=== PATIENT | female | born 1995 | race Two or more races ===

== ENCOUNTER 2024-12-13 10:27 | Inpatient (IN) | payer MEDICAID, OTHER ==
[~2024-12-13] VITALS: Ht 167.6 cm; Wt 52.7 kg
--- NOTE | 2024-12-13 11:06 | ED.PDOC ---
History of Present Illness HPI Comments A 29 YEAR OLD FEMALE PRESENTS TO THE ED WITH COMPLAINT OF LEFT-SIDED PELVIC PAIN AND URINARY URGENCY. PATIENT STATES SHE HAS BEEN EXPERIENCING LEFT-SIDED PELVIC PAIN FOR THE PAST 1 WEEK. PATIENT REPORTS SHE HAS ALSO BEEN EXPERIENCING URINARY URGENCY AND FREQUENCY WITH MILDLY INCREASED THIRST FOR THE PAST 4 DAYS. PATIENT DENIES DYSURIA, HEMATURIA, FLANK PAIN, FEVER, CHILLS, SHORTNESS OF BREATH, CHEST PAIN, ABDOMINAL PAIN, NAUSEA, VOMITING, HEADACHE, OR OTHER COMPLAINTS. NO OTHER SYMPTOMS OR MODIFYING FACTORS AT THIS TIME. PATIENT IS ALERT, ORIENTED X 4, AND HAS STEADY GAIT. Chief Complaint: Pelvic Pain Time Seen by MD: 10:28 Reviewed Notes: Nurses Notes, Medications, Allergies Allergies: Coded Allergies: NO KNOWN ALLERGIES (Unverified , 12/13/24) Information Source: Patient Mode of Arrival: Ambulatory Severity: Moderate Timing: Days Duration: Since onset, Days Prehospital treatment: None Medication Refill: For: Other (LEFT-SIDED PELVIC PAIN AND URINARY URGENCY) Past Medical History PAST MEDICAL HISTORY: Denies Surgical History: Denies all surgeries CLEANING LABORER History: No Pertinent CLEANING LABORER History Family History Family History: Reviewed,noncontributory to illness Social History Smoker: Non-Smoker Alcohol: Denies ETOH Use Drugs: Denies Drug Use Lives In: Home Constitutional: denies: chills, diaphoresis, fatigue, fever, malaise, sweats, weakness, others EENTM: denies: blurred vision, double vision, ear bleeding, ear discharge, ear drainage, ear pain, ear ringing, eye pain, eye redness, hearing loss, mouth pain, mouth swelling, nasal discharge, nose bleeding, nose congestion, nose brianna n, photophobia, tearing, throat pain, throat swelling, voice changes, others Respiratory: denies: cough, hemoptysis, orthopnea, SOB at rest, shortness of breath, SOB with excertion, stridor, wheezing, others Cardiovascular: denies: chest pain, dizzy spells, diaphoresis, Dyspnea on exertion, edema, irregular heart beat, left arm pain, lightheadedness, palpitations, PND, syncope, others Gastrointestinal: denies: abdomen distended, abdominal pain, blood streaked bowels, constipated, diarrhea, dysphagia, difficulty swallowing, hematemesis, melena, nausea, poor appetite, poor fluid intake, rectal bleeding, rectal pain, vomiting, others Genitourinary: reports: frequency, pain (LEFT-SIDED PELVIC PAIN), urgency; denies: abnormal vagina bleeding, burning, dyspareunia, dysuria, flank pain, hematuria, incontinence, , vagina discharge, others Neurological: denies: dizziness, fainting, headache, left sided numbness, left sided weakness, numbness, paresthesia, pre-existing deficit, right sided numbness, right sided weakness, seizure, speech problems, tingling, tremors, weakness, others Musculoskeletal: denies: back pain, gout, joint pain, joint swelling, muscle pain, muscle stiffness, neck pain, others Integumetry: denies: bruises, change in color, change in hair/nails, dryness, laceration, lesions, lumps, rash, wounds, others Allergic/Immunocompromised: denies: Difficulty Healing, Frequent Infections, Hives, Itching, others Hematologic/Lymphatic: denies: anemia, blood clots, easy bleeding, easy bruising, swollen glands, others Endocrine: denies: excessive hunger, excessive sweating, excessive thirst, excessive urination, flushing, intolerance to cold, intolerance to heat, unexplained weight gain, unexplained weight loss, others Psychiatric: denies: anxiety, bipolar disorder, depression, hopeless, panic disorder, schizophrenia, sleepless, suicidal, others All Other Systems: Reviewed and Negative Physical Exam General Appearance: No Apparent Distress, Obese HEENT: Normal ENT Inspection, PERRL/EOMI, Pharynx Normal, TMs Normal Neck: Full Range of Motion, Non-Tender, Normal, Normal Inspection Respiratory: Chest Non-Tender, Lungs Clear, No Accessory Muscle Use, No Respiratory Distress, Normal Breath Sounds Cardiovascular: No Edema, No JVD, No Murmur, No Gallop, Normal Peripheral Pulses, Regular Rate/Rhythm Breast Exam: Deferred Gastrointestinal: LLQ, No Organomegaly, No Pulsatile Mass, Normal Bowel Sounds, Soft, Tenderness (LEFT LOWER ABD WITH GUARDING, NO REBOUND TENDERNESS. ) Genitalia: Deferred Pelvic: Normal External Exam, Tender Adnexa (TENDERNE ON LEFT PELVIC, NO GUARDING AND REBOUND TENDERNESS. ), Tender Uterus Rectal: Deferred Extremities: No calf tenderness, Normal capillary refill, Normal inspection, Normal range of motion, Non-tender, No pedal edema Musculoskeletal : Apperance: Normal Neurologic: Alert, vault custodian II-XII nml as Tested, No Motor Deficits, Normal Affect, Normal Mood, No Sensory Deficits Cerebellar Function: Normal Reflexes: Normal Skin: Dry, Normal Color, Warm Peripheral Pulses: 2+ carotid (R), 2+ carotid (L) Lymphatic: No Adenopathy Was a procedure done? Was a procedure done?: No Differential Dx Considerations may include: UTI, ACUTE CYSTITIS, UTERINE FIBROIDS, OVARIAN CYST, DIABETES, ELECTROLYTE IMBALANCE, DEHYDRATION, UTI SYMPTOMS X-Ray, Labs, Meds, VS Vital Signs Date Time Temp Pulse Resp B/P (MAP) Pulse Ox O2 Delivery O2 Flow Rate FiO2 12/13/24 10:28 98.8 96 18 132/84 99 98.8 Lab Test 12/13/24 11:09 12/13/24 10:57 Range/Units White Blood Count 22.7 H 4.4-10.8 10^3/uL Red Blood Count 4.86 4.0-5.20 10^6/uL Hemoglobin 13.2 12.2-16.2 g/dL Hematocrit 39.5 36.0-46.0 % Mean Corpuscular Volume 81.2 80.0-100.0 fL Mean Corpuscular Hemoglobin 27.1 L 28.0-32.0 pg Mean Corpuscular Hemoglobin Concent 33.4 32.0-36.0 g/dL Red Cell Distribution Width 14.7 H 11.8-14.3 % Platelet Count 542 H 140-450 10^3/uL Mean Platelet Volume 8.1 6.9-10.8 fL Neutrophils (%) (Auto) 83.3 H 37.0-80.0 % Lymphocytes (%) (Auto) 6.1 L 10.0-50.0 % Monocytes (%) (Auto) 9.4 0.0-12.0 % Eosinophils (%) (Auto) 0.7 0.0-7.0 % Basophils (%) (Auto) 0.5 0.0-2.0 % Neutrophils # (Auto) 18.9 H 1.6-8.6 10 ^3/uL Lymphocytes # (Auto) 1.4 0.4-5.4 10 ^3/uL Monocytes # (Auto) 2.1 H 0-1.3 10 ^3/uL Eosinophils # (Auto) 0.2 0-0.8 10 ^3/uL Basophils # (Auto) 0.1 0-0.2 10 ^3/uL Nucleated Red Blood Cells 0.0 % Prothrombin Time 12.4 H 9.3-11.8 sec Prothrombin Time INR 1.19 H 0.9-1.15 Activated Partial Thromboplast Time 37.0 H 24.5-34.5 SEC Sodium Level 136 136-145 mmol/L Potassium Level 4.2 3.5-5.1 mmol/L Chloride Level 102 98-107 mmol/L Carbon Dioxide Level 22 20-31 mmol/L Anion Gap 12 5-15 Blood Urea Nitrogen 8 L 9-23 mg/dL Creatinine 0.93 0.550-1.02 mg/dL Glomerular Filtration Rate Calc 85 >90 mL/min BUN/Creatinine Ratio 8.6 L 10.0-20.0 Serum Glucose 98 74-106 mg/dL Calcium Level 8.7 8.7-10.4 mg/dL Urine Color Karnes H Yellow Urine Clarity Turbid H Clear Urine pH 6.0 5.0-9.0 Urine Specific Lavinia 1.032 1.001-1.035 Urine Protein 1+ H Negative Urine Ketones 1+ H Negative Urine Blood 1+ H Negative /uL Urine Nitrite Negative Negative Urine Bilirubin 1+ H Negative Urine Urobilinogen 8 H Negative mg/dL Urine Leukocyte Esterase 3+ Negative /uL Urine RBC 14 0 - 4 /hpf Urine Microscopic WBC 65 H 0-5 /HPF Urine Squamous Epithelial Cells Mod <5 /hpf Urine Bacteria None seen None Seen /hpf Urine Mucus Few None Seen Urine Yeast (Budding) Occasional None Seen /hpf Urine Glucose Normal Normal mg/dL Urine Test Negative Negative INDICATION: LEFT SIDE PELVIC PAIN TECHNIQUE: Multiple real-time grayscale transabdominal and transvaginal sonographic images along with color and duplex Doppler of the uterus and ovaries were obtained. COMPARISON: None FINDINGS: The uterus measures 6.41 x 4.53 x 3.54 cm. The endometrial stripe measures 0.36 mm. Fluid in the cul-de-sac and bilateral adnexa The right ovary measures 4.37 x 2.82 by 3.14 cm. Volume of the right ovary is 20.23 cc. Multiple anechoic structures in the right ovary consistent with follicles The left ovary measures 3.73 by 2.57 by 2.87 cm. Volume of the left ovary is 14.41 cc. Subsequent color and duplex Doppler interrogation of the ovaries demonstrated symmetric vascular flow to both ovaries, though this does not exclude the possibility of torsion due to the dual blood supply. IMPRESSION: 1. Grossly unremarkable pelvic ultrasound. 2. Fluid in the cul-de-sac and bilateral adnexa. 3. Multiple follicles right ovary. ATED BY: RYAN MANNING Jr., DO DICTATED DATE/TIME: 12/13/24 1234 SIGNED BY: RYAN MANNING Jr., SIGNED DATE/TIME: 12/13/24 1234 CC: EXAM: CT CT AB PEL WO CON-NO ORAL OR IV HISTORY: LEFT LOWER ABD PAIN COMPARISON: None TECHNIQUE: Helical CT images of the abdomen and pelvis were performed without IV contrast. Sagittal and coronal reformatted images were obtained. This CT exam was performed using one or more of the following dose reduction techniques: Automated exposure control, adjustment of the mA and/or kv according to patient size, or the use of iterative reconstruction techniques. Radiation Dose: Abdomen/Pelvis: CTDIvol 25.2 mGy, DLP 1395.39 mGy*cm. FINDINGS: CT abdomen: There is atelectasis or scarring in the right middle lobe. The heart is not enlarged. The liver is diffusely fatty density and measures 22 cm longitudinal. The spleen measures 12 cm longitudinal. The noncontrast gallbladder, pancreas, kidneys, and adrenal glands are unremarkable. No abdominal aortic aneurysm. There are multiple mildly prominent lymph nodes in the central mesenteric fat and periaortic retroperitoneum. There is a small fatty umbilical hernia. CT pelvis: No abnormal bowel dilatation or free air. There is low volume free fluid in the pelvis with density greater than water. There is edema of the mid to lower abdominal and pelvic mesenteric fat anteriorly with question of a solid mass versus irregular fluid abutting the urinary bladder dome, loops of small bowel, and sigmoid colon. There are descending and sigmoid colon diverticula The appendix does not appear dilated or inflamed. Urinary bladder wall is thickened, although the urinary bladder is not distended. There is mild lumbar degenerative disc disease. IMPRESSION: 1. Hepatomegaly and hepatic steatosis. 2. Fluid density mass-like area in the lower abdominal mesenteric fat abuts the urinary bladder dome, loops of small bowel, and sigmoid colon. This likely represents inflammatory phlegmon versus developing diverticular abscess, less likely neoplasm. Recommend surgical consultation if not already obtained. 3. Low volume free fluid in the pelvis with increased density suggestive of blood products. 4. No evidence of bowel obstruction, acute appendicitis, or other acute process in the abdomen or pelvis. ATED BY: CARMEN VELEZ MD DICTATED DATE/TIME: 12/13/241414 SIGNED BY: CARMEN VELEZ MD SIGNED DATE/TIME: 12/13/241414 CC: X-Ray, Labs, Meds, VS Comment EXTERNAL MEDICAL RECORDS REVIEWED: [NONE] INDEPENDENT HISTORIANS: [NONE] SOCIAL DETERMINANTS OF HEALTH: [NONE] LABS ORDERED: CBC, BMP, UA, URINE REVIEWED AND INTERPRETED RESULTS: WBC 22.7, LEUKOCYTES 3+ IMAGING ORDERED: US PELVIS, CT ABD/PEL TREATMENTS ORDERED: NS 1 L IV, ZOFRAN 4 MG IV, FLAGYL 500 MG IV, LEVAQUIN 500 MG IV, TORADOL 30 MG IV PROCEDURES PERFORMED: NONE CRITICAL CARE TIME: NONE I HAVE DISCUSSED THE PATIENT WITH THE ATTENDING PHYSICIAN DR. CROCKETT AND HE AGREES WITH THE PATIENT'S PLAN OF CARE. UPON MY PHYSICAL EXAMINATION, THE PATIENT HAD GUARDING, BUT NO REBOUND TENDERNESS NOTED UPON PALPATION TO HER LOWER ABDOMEN. A CT SCAN OF THE PATIENT'S ABDOMEN AND PELVIS WAS DONE WHICH REVEALED DIVERTICULITIS WITH A POSSI BLE DEVELOPING DIVERTICULAR ABSCESS. DUE TO THE PATIENT'S CT SCAN RESULTS, I HAVE DETERMINED THE PATIENT SHOULD BE ADMITTED FOR FURTHER TREATMENT AND EVALUATION. THE ON-CALL HOSPITALIST AND GENERAL SURGEON WILL BE CONTACTED FOR ADMISSION AND CONSULT. Images Reviewed?: Images reviewed and evaluated by me Time of 1ST Reevaluation: 15:00 Reevaluation 1ST: Unchanged Patient Education/Counseling: Diagnosis, Treatment Family Education/Counseling: Diagnosis, Treatment SEPSIS Sepsis Screen Date sepsis recognized/suspect: Dec 13, 2024 Time Sepsis recognized/suspect: 1030 Recent Procedure: No On Antibiotic Therapy: No Respiratory Rate >20: No Heart Rate >90: Yes Temp<36 C (96.8 F) or >38.3 C: No SBP <90 or MAP <65 mmHG: No New Acute Mental Status Change: No Is the patient on CPAP, BIPAP,: No Physician Orders Pelvic (12/13/24 11:02) Ct Ab Pel Wo Con-No Oral Or Iv (12/13/24 13:29) Heplock Iv (12/13/24 ) Vital Signs Date Time Temp Pulse Resp B/P (MAP) Pulse Ox O2 Delivery O2 Flow Rate FiO2 12/13/24 10:28 98.8 96 18 132/84 99 98.8 Laboratory Tests Test 12/13/24 11:09 White Blood Count 22.7 10^3/uL (4.4-10.8) H Departure 1 Departure Time of Disposition: 15:00 Impression: Primary Impression: Acute diverticulitis Additional Impression: Acute UTI (urinary tract infection) Disposition: ADMITTED INPATIENT Condition: Serious Critical Care Note Critical Care Time?: No Stability Stability form required: Yes Unstable for transfer: Requires medication, ED Physician Assesment, Possible rapid decline I personally scribed for LUIS FERNANDO VALLE ([email or web address]) on 12/13/24 at 11:06. Electronically submitted by Wesly Medley ([employer]). I personally scribed for LUIS FERNANDO VALLE ([email or web address]) on 12/13/24 at 14:38. Electronically submitted by Wesly Medley ([employer]). I personally scribed for LUIS FERNANDO VALLE ([email or web address]) on 12/13/24 at 15:12. Electronically submitted by Wesly Medley ([email or web address]). LUIS FERNANDO VALLE Dec 13, 2024 11:06
[2024-12-13 11:21] LABS: Hematocrit 39.5 % (36.0-46.0); Hemoglobin 13.2 g/dL (12.2-16.2); Mean Corpuscular Hemoglobin 27.1 pg (28.0-32.0); Mean Corpuscular Volume 81.2 fL (80.0-100.0); Nucleated Red Blood Cells % 0.0 %
[2024-12-13 11:30] LABS: Chloride 102 mmol/L (98-107); Potassium 4.2 mmol/L (3.5-5.1)
[2024-12-13 11:31] LABS: Anion Gap 12 (5-15); Carbon Dioxide 22 mmol/L (20-31)
[2024-12-13 11:36] LABS: BUN/Creatinine Ratio 8.6 (10.0-20.0); Glucose 98 mg/dL (74-106)
[2024-12-13 11:37] LABS: Blood Urea Nitrogen 8 mg/dL (9-23); Calcium 8.7 mg/dL (8.7-10.4); Sodium 136 mmol/L (136-145)
--- NOTE | 2024-12-13 12:37 | DVH ---
INDICATION: LEFT SIDE PELVIC PAIN TECHNIQUE: Multiple real-time grayscale transabdominal and transvaginal sonographic images along with color and duplex Doppler of the uterus and ovaries were obtained. COMPARISON: None FINDINGS: The uterus measures 6.41 x 4.53 x 3.54 cm. The endometrial stripe measures 0.36 mm. Fluid i n the cul-de-sac and bilateral adnexa The right ovary measures 4.37 x 2.82 by 3.14 cm. Volume of the right ovary is 20.23 cc. Multiple anec hoic structures in the right ovary consistent with follicles The left ovary measures 3.73 by 2.57 by 2.87 cm. Volume of the left ovary is 14.41 cc. Subsequent color and duplex Doppler interrogation of the ovaries demonstrated symmetric vascular flow to both ovaries, though this does not exclude the possibility of torsion due to the dual blood suppl y. IMPRESSION: 1. Grossly unremarkable pelvic ultrasound. 2. Fluid in the cul-de-sac and bilateral adnexa. 3. Multiple follicles right ovary.
[2024-12-13 12:53] LABS: Urine Budding Yeast OCCASIONAL /hpf (None Seen); Urine Protein, UAD 1+ (Negative)
--- NOTE | 2024-12-13 14:17 | DVH ---
EXAM: CT CT AB PEL WO CON-NO ORAL OR IV HISTORY: LEFT LOWER ABD PAIN COMPARISON: None TECHNIQUE: Helical CT images of the abdomen and pelvis were performed without IV contrast. Sagittal a nd coronal reformatted images were obtained. This CT exam was performed using one or more of the foll owing dose reduction techniques: Automated exposure control, adjustment of the mA and/or kv according to patient size, or the use of iterative reconstruction techniques. Radiation Dose: Abdomen/Pelvis: CTDIvol 25.2 mGy, DLP 1395.39 mGy*cm. FINDINGS: CT abdomen: There is atelectasis or scarring in the right middle lobe. The heart is not enlarged. The liver is diffusely fatty density and measures 22 cm longitudinal. The spleen measures 12 cm longitu dinal. The noncontrast gallbladder, pancreas, kidneys, and adrenal glands are unremarkable. No abdomi nal aortic aneurysm. There are multiple mildly prominent lymph nodes in the central mesenteric fat an d periaortic retroperitoneum. There is a small fatty umbilical hernia. CT pelvis: No abnormal bowel dilatation or free air. There is low volume free fluid in the pelvis wit h density greater than water. There is edema of the mid to lower abdominal and pelvic mesenteric fat anteriorly with question of a solid mass versus irregular fluid abutting the urinary bladder dome, lo ops of small bowel, and sigmoid colon. There are descending and sigmoid colon diverticula The appendi x does not appear dilated or inflamed. Urinary bladder wall is thickened, although the urinary bladde r is not distended. There is mild lumbar degenerative disc disease. IMPRESSION: 1. Hepatomegaly and hepatic steatosis. 2. Fluid density mass-like area in the lower abdominal mesenteric fat abuts the urinary bladder dome, loops of small bowel, and sigmoid colon. This likely represents inflammatory phlegmon versus develop ing diverticular abscess, less likely neoplasm. Recommend surgical consultation if not already obtain ed. 3. Low volume free fluid in the pelvis with increased density suggestive of blood products. 4. No evidence of bowel obstruction, acute appendicitis, or other acute process in the abdomen or pel vis.
[2024-12-13] MEDS ORDERED: VANCOMYCIN PER PHARMACY 0 MG IV SCH (15:00)
[2024-12-13] MEDS ORDERED: MORPHINE SULFATE 4 MG/ML SYR/VIAL IV PRN (15:00)
[2024-12-13] MEDS ORDERED: MORPHINE SULFATE INJ 2 MG/ml SYRG IV PRN (15:00)
[2024-12-13] MEDS: SODIUM CHLORIDE 0.9% 1,000 ML IV ONE ×2 (15:00→18:00)
[2024-12-13 15:21] LABS: INR 1.19 (0.9-1.15); Partial Thromboplastin Time 37.0 SEC (24.5-34.5); Prothrombin Time 12.4 sec (9.3-11.8)
[2024-12-13] MEDS: VANCOMYCIN 1GM/250ML KIT 250 ML IV SCH (16:30)
--- NOTE | 2024-12-13 17:44 | DVHHP2 ---
History of Present Illness Reason for Visit: Abdominal pain History of Present Illness 29-year-old presents for evaluation of abdominal pain. Patient reports a one- week history of lower abdominal/pelvic pain with associated nausea, vomiting and chills. She states that over the past four days symptoms have become worse. Denies dysuria or hematuria. Past Medical History Denies Past Surgical History Denies Family History Noncontributory Smoke: No ALCOHOL: none Drugs: None Lives: with Family Review of Systems Review of Systems Review of systems are currently negative otherwise addressed in HPI. Allergies: Coded Allergies: NO KNOWN ALLERGIES (Unverified , 12/13/24) Medications Current Medications Medications Dose Ordered Sig/Naye Route Start Time Stop Time Status Last Admin Dose Admin Vancomycin HCl 0 ml @ 0 mls/hr UD IV 12/13/24 15:00 Piperacillin Sod/ Tazobactam Sod 100 ml @ 25 mls/hr Q8HR IV 12/13/24 22:00 Pantoprazole Sodium 40 mg DAILY IV 12/14/24 10:00 Ondansetron HCl 4 mg Q4HP PRN IV 12/13/24 15:00 Morphine Sulfate 2 mg Q4HPRN PRN IV 12/13/24 15:00 UNV Morphine Sulfate 2 mg Q4HPRN PRN IV 12/13/24 15:00 Vancomycin HCl 250 ml @ 250 mls/hr Q1H IV 12/13/24 16:30 12/13/24 18:29 Exam Vital Signs Vital Signs Date Time Temp Pulse Resp B/P (MAP) Pulse Ox O2 Delivery O2 Flow Rate FiO2 12/13/24 10:28 98.8 96 18 132/84 99 98.8 Exam Gen: 29-year-old female in mild distress. Skin: Warm, dry, normal color and texture, no rash. HEENT: Normocephalic atraumatic, mucous membranes moist and pink. Neck: Cervical and supraclavicular nodes normal without enlargement, trachea is midline, thyroid gland is normal without masses. Pulmonary: Clear to auscultation and percussion bilaterally. Cardiac: Regular rate and rhythm. No murmur Abdomen: Soft, lower abdominal tenderness, nondistended, bowel sounds present all 4 quadrants, no guarding, no rigidity, no organomegaly. Extremities: No cyanosis, clubbing, no edema Neuro: Cranial nerves II through XII grossly intact, normal affect and speech, no focal motor deficits. Labs/Xrays ORDERING PHYSICIAN: LUIS FERNANDO VALLE PROCEDURE(s): PELUS - PELVIC REASON: LEFT SIDE PELVIC PAIN ORDER NUMBER(s): [id number], ACCESSION NUMBER(s): [id number] INDICATION: LEFT SIDE PELVIC PAIN TECHNIQUE: Multiple real-time grayscale transabdominal and transvaginal sonographic images along with color and duplex Doppler of the uterus and ovaries were obtained. COMPARISON: None FINDINGS: The uterus measures 6.41 x 4.53 x 3.54 cm. The endometrial stripe measures 0.36 mm. Fluid in the cul-de-sac and bilateral adnexa The right ovary measures 4.37 x 2.82 by 3.14 cm. Volume of the right ovary is 20.23 cc. Multiple anechoic structures in the right ovary consistent with follicles The left ovary measures 3.73 by 2.57 by 2.87 cm. Volume of the left ovary is 14.41 cc. Subsequent color and duplex Doppler interrogation of the ovaries demonstrated symmetric vascular flow to both ovaries, though this does not exclude the possibility of torsion due to the dual blood supply. IMPRESSION: 1. Grossly unremarkable pelvic ultrasound. 2. Fluid in the cul-de-sac and bilateral adnexa. 3. Multiple follicles right ovary. RING PHYSICIAN: LUIS FERNANDO VALLE PROCEDURE(s): ABPL - CT AB PEL WO CON-NO ORAL OR IV REASON: LEFT LOWER ABD PAIN ORDER NUMBER(s): [id number], ACCESSION NUMBER(s): [id number] EXAM: CT CT AB PEL WO CON-NO ORAL OR IV HISTORY: LEFT LOWER ABD PAIN COMPARISON: None TECHNIQUE: Helical CT images of the abdomen and pelvis were performed without IV contrast. Sagittal and coronal reformatted images were obtained. This CT exam was performed using one or more of the following dose reduction techniques: Automated exposure control, adjustment of the mA and/or kv according to patient size, or the use of iterative reconstruction techniques. Radiation Dose: Abdomen/Pelvis: CTDIvol 25.2 mGy, DLP 1395.39 mGy*cm. FINDINGS: CT abdomen: There is atelectasis or scarring in the right middle lobe. The heart is not enlarged. The liver is diffusely fatty density and measures 22 cm longitudinal. The spleen measures 12 cm longitudinal. The noncontrast gallbladder, pancreas, kidneys, and adrenal glands are unremarkable. No abdominal aortic aneurysm. There are multiple mildly prominent lymph nodes in the central mesenteric fat and periaortic retroperitoneum. There is a small fatty umbilical hernia. CT pelvis: No abnormal bowel dilatation or free air. There is low volume free fluid in the pelvis with density greater than water. There is edema of the mid to lower abdominal and pelvic mesenteric fat anteriorly with question of a solid mass versus irregular fluid abutting the urinary bladder dome, loops of small bowel, and sigmoid colon. There are descending and sigmoid colon diverticula The appendix does not appear dilated or inflamed. Urinary bladder wall is thickened, although the urinary bladder is not distended. There is mild lumbar degenerative disc disease. IMPRESSION: 1. Hepatomegaly and hepatic steatosis. 2. Fluid density mass-like area in the lower abdominal mesenteric fat abuts the urinary bladder dome, loops of small bowel, and sigmoid colon. This likely represents inflammatory phlegmon versus developing diverticular abscess, less likely neoplasm. Recommend surgical consultation if not already obtained. 3. Low volume free fluid in the pelvis with increased density suggestive of blood products. 4. No evidence of bowel obstruction, acute appendicitis, or other acute process in the abdomen or pelvis. Labs Test 12/13/24 11:09 12/13/24 10:57 Range/Units White Blood Count 22.7 H 4.4-10.8 10^3/uL Red Blood Count 4.86 4.0-5.20 10^6/uL Hemoglobin 13.2 12.2-16.2 g/dL Hematocrit 39.5 36.0-46.0 % Mean Corpuscular Volume 81.2 80.0-100.0 fL Mean Corpuscular Hemoglobin 27.1 L 28.0-32.0 pg Mean Corpuscular Hemoglobin Concent 33.4 32.0-36.0 g/dL Red Cell Distribution Width 14.7 H 11.8-14.3 % Platelet Count 542 H 140-450 10^3/uL Mean Platelet Volume 8.1 6.9-10.8 fL Neutrophils (%) (Auto) 83.3 H 37.0-80.0 % Lymphocytes (%) (Auto) 6.1 L 10.0-50.0 % Monocytes (%) (Auto) 9.4 0.0-12.0 % Eosinophils (%) (Auto) 0.7 0.0-7.0 % Basophils (%) (Auto) 0.5 0.0-2.0 % Neutrophils # (Auto) 18.9 H 1.6-8.6 10 ^3/uL Lymphocytes # (Auto) 1.4 0.4-5.4 10 ^3/uL Monocytes # (Auto) 2.1 H 0-1.3 10 ^3/uL Eosinophils # (Auto) 0.2 0-0.8 10 ^3/uL Basophils # (Auto) 0.1 0-0.2 10 ^3/uL Nucleated Red Blood Cells 0.0 % Prothrombin Time 12.4 H 9.3-11.8 sec Prothrombin Time INR 1.19 H 0.9-1.15 Activated Partial Thromboplast Time 37.0 H 24.5-34.5 SEC Sodium Level 136 136-145 mmol/L Potassium Level 4.2 3.5-5.1 mmol/L Chloride Level 102 98-107 mmol/L Carbon Dioxide Level 22 20-31 mmol/L Anion Gap 12 5-15 Blood Urea Nitrogen 8 L 9-23 mg/dL Creatinine 0.93 0.550-1.02 mg/dL Glomerular Filtration Rate Calc 85 >90 mL/min BUN/Creatinine Ratio 8.6 L 10.0-20.0 Serum Glucose 98 74-106 mg/dL Calcium Level 8.7 8.7-10.4 mg/dL Urine Color [place] H Yellow Urine Clarity Turbid H Clear Urine pH 6.0 5.0-9.0 Urine Specific [place] 1.032 1.001-1.035 Urine Protein 1+ H Negative Urine Ketones 1+ H Negative Urine Blood 1+ H Negative /uL Urine Nitrite Negative Negative Urine Bilirubin 1+ H Negative Urine Urobilinogen 8 H Negative mg/dL Urine Leukocyte Esterase 3+ Negative /uL Urine RBC 14 0 - 4 /hpf Urine Microscopic WBC 65 H 0-5 /HPF Urine Squamous Epithelial Cells Mod <5 /hpf Urine Bacteria None seen None Seen /hpf Urine Mucus Few None Seen Urine Yeast (Budding) Occasional None Seen /hpf Urine Glucose Normal Normal mg/dL Urine Test Negative Negative SEPSIS Sepsis Screen Date sepsis recognized/suspect: Dec 13, 2024 Time Sepsis recognized/suspect: 1030 Recent Procedure: No On Antibiotic Therapy: No Respiratory Rate >20: No Heart Rate >90: Yes Temp<36 C (96.8 F) or >38.3 C: No SBP <90 or MAP <65 mmHG: No New Acute Mental Status Change: No Is the patient on CPAP, BIPAP,: No Physician Orders Pelvic (12/13/24 11:02) Ct Ab Pel Wo Con-No Oral Or Iv (12/13/24 13:29) Heplock Iv (12/13/24 ) Admit (12/13/24 14:49) * Surgical Consult (12/13/24 ) * Radiologist Consult (12/13/24 14:51) Vancomycin Per Pharmacy (12/13/24 15:00) Piperacillin-Tazob 3.375gm (Zosyn 3.375g (12/13/24 22:00) Pantoprazole (Protonix) (12/14/24 10:00) Basic Metabolic Panel (12/14/24 04:00) Ondansetron Hcl (Zofran) (12/13/24 15:00) Complete Blood Count (12/14/24 04:00) Npo (Nothing By Mouth) Diet (12/13/24 Dinner) Condition: Stable (12/13/24 14:54) Bedrest With Bathroom Privileg (12/13/24 14:54) Sodium Chloride 0.9% (12/13/24 15:00) Morphine Sulfate Injection (12/13/24 15:00) Vancomycin 1gm/250ml Kit (12/13/24 16:30) Vital Signs Date Time Temp Pulse Resp B/P (MAP) Pulse Ox O2 Delivery O2 Flow Rate FiO2 12/13/24 10:28 98.8 96 18 132/84 99 98.8 Laboratory Tests Test 12/13/24 11:09 White Blood Count 22.7 10^3/uL (4.4-10.8) H Assessment/Plan Assessment/Plan Assessment Questionable diverticular abscess Leukocytosis Admit the patient to [facility] surge to the hospitalist Surgical consultation Radiology consult Zosyn/vancomycin NPO Pain management Continue treatment per orders Plan discussed with: Patient My Orders Orders - PALLAVI PINTO Procedure Category Date Status Time Admit ADMIT 12/13/24 Transmitted 14:49 * Radiologist Consult CONS 12/13/24 Transmitted 14:51 Vancomycin Per PHA 12/13/24 In Process Pharmacy 15:00 Piperacillin-Tazob PHA 12/13/24 In Process 3.375gm (Zosyn 3.375g 22:00 Pantoprazole PHA 12/14/24 In Process (Protonix) 10:00 Basic Metabolic Panel LAB 12/14/24 Verified 04:00 Ondansetron Hcl PHA 12/13/24 In Process (Zofran) 15:00 Complete Blood Count LAB 12/14/24 Verified 04:00 Npo (Nothing By DIET 12/13/24 Transmitted Mouth) Diet Dinner Condition: Stable VIOLET 12/13/24 In Process 14:54 Bedrest With Bathroom VIOLET 12/13/24 In Process Privileg 14:54 Sodium Chloride 0.9% PHA 12/13/24 In Process 15:00 Morphine Sulfate PHA 12/13/24 In Process Injection 15:00 Vancomycin 1gm/250ml PHA 12/13/24 In Process Kit 16:30 Date of Service: Dec 13, 2024 Billing Provider: PALLAVI PINTO Common Visit Codes: [id number] INP/OBS CARE (MOD) PALLAVI PINTO Dec 13, 2024 17:44
[2024-12-13 18:16] VITALS: PULSE 80; RESP 18; O2SAT 96
[2024-12-13] MEDS: KETOROLAC TROMETH 30 MG/ML 1ML VIAL IV ONE ×3 (18:56→21:02)
--- NOTE | 2024-12-13 19:36 | DVHINCON2 ---
Consultation - Surgical Date Seen: Dec 13, 2024 Referring Physician Reason for Consultation Diverticulitis History of Present Illness History of Present Illness is a 29-year-old female who presented to the ED due to intractable lower abdominal pain, the pain has been present for the last week. The pain has intensified over the last 2-3 days and this is why she decided to come to the ED. It is associated with nausea and occasional vomiting. States that since the pain started she has not been able to go regularly to the bathroom, she has had to push allowed to have a bowel movement. She regularly has 2-3 bowel movements per day. Has not noted any blood in the stool. Denies any changes between constipation and diarrhea and there is no family history of IBD/IBS. She is lactose intolerant. Denies fevers, chills, changes in urinary habits. Denies any past history of diverticulosis or strong family history of diverticulosis. Past Medical/Surgical History Past Medical/Surgical History PMH lactose intolerant, asthma PSH denies Family and Social History Family and Social History No family history of IBD/IBS Allergies and medications Allergies: Coded Allergies: NO KNOWN ALLERGIES (Unverified , 12/13/24) Review of systems Review of Systems: Deferred Examination Vital signs Vital Signs Date Time Temp Pulse Resp B/P (MAP) Pulse Ox O2 Delivery O2 Flow Rate FiO2 12/13/24 10:28 98.8 96 18 132/84 99 98.8 Medications Current Medications Medications (Trade) Dose Ordered Sig/Naye Route PRN Reason Start Time Stop Time Status Last Admin Vancomycin HCl 0 ml @ 0 mls/hr UD IV 12/13/24 15:00 Piperacillin Sod/ Tazobactam Sod 100 ml @ 25 mls/hr Q8HR IV 12/13/24 22:00 Pantoprazole Sodium (Protonix) 40 mg DAILY IV 12/14/24 10:00 Ondansetron HCl (Zofran) 4 mg Q4HP PRN IV NAUSEA / VOMITING 12/13/24 15:00 Morphine Sulfate 2 mg Q4HPRN PRN IV SEVERE PAIN (7-10 PAIN SCALE) 12/13/24 15:00 UNV Morphine Sulfate 2 mg Q4HPRN PRN IV SEVERE PAIN (7-10 PAIN SCALE) 12/13/24 15:00 Vancomycin HCl 250 ml @ 250 mls/hr Q1H IV 12/13/24 16:30 12/13/24 18:29 DC Laboratory Labs Test 12/13/24 18:00 12/13/24 11:09 12/13/24 10:57 Range/Units Lactic Acid Level 0.7 0.4-2.0 mmol/L White Blood Count 22.7 H 4.4-10.8 10^3/uL Red Blood Count 4.86 4.0-5.20 10^6/uL Hemoglobin 13.2 12.2-16.2 g/dL Hematocrit 39.5 36.0-46.0 % Mean Corpuscular Volume 81.2 80.0-100.0 fL Mean Corpuscular Hemoglobin 27.1 L 28.0-32.0 pg Mean Corpuscular Hemoglobin Concent 33.4 32.0-36.0 g/dL Red Cell Distribution Width 14.7 H 11.8-14.3 % Platelet Count 542 H 140-450 10^3/uL Mean Platelet Volume 8.1 6.9-10.8 fL Neutrophils (%) (Auto) 83.3 H 37.0-80.0 % Lymphocytes (%) (Auto) 6.1 L 10.0-50.0 % Monocytes (%) (Auto) 9.4 0.0-12.0 % Eosinophils (%) (Auto) 0.7 0.0-7.0 % Basophils (%) (Auto) 0.5 0.0-2.0 % Neutrophils # (Auto) 18.9 H 1.6-8.6 10 ^3/uL Lymphocytes # (Auto) 1.4 0.4-5.4 10 ^3/uL Monocytes # (Auto) 2.1 H 0-1.3 10 ^3/uL Eosinophils # (Auto) 0.2 0-0.8 10 ^3/uL Basophils # (Auto) 0.1 0-0.2 10 ^3/uL Nucleated Red Blood Cells 0.0 % Prothrombin Time 12.4 H 9.3-11.8 sec Prothrombin Time INR 1.19 H 0.9-1.15 Activated Partial Thromboplast Time 37.0 H 24.5-34.5 SEC Sodium Level 136 136-145 mmol/L Potassium Level 4.2 3.5-5.1 mmol/L Chloride Level 102 98-107 mmol/L Carbon Dioxide Level 22 20-31 mmol/L Anion Gap 12 5-15 Blood Urea Nitrogen 8 L 9-23 mg/dL Creatinine 0.93 0.550-1.02 mg/dL Glomerular Filtration Rate Calc 85 >90 mL/min BUN/Creatinine Ratio 8.6 L 10.0-20.0 Serum Glucose 98 74-106 mg/dL Calcium Level 8.7 8.7-10.4 mg/dL Urine Color [place] H Yellow Urine Clarity Turbid H Clear Urine pH 6.0 5.0-9.0 Urine Specific [place] 1.032 1.001-1.035 Urine Protein 1+ H Negative Urine Ketones 1+ H Negative Urine Blood 1+ H Negative /uL Urine Nitrite Negative Negative Urine Bilirubin 1+ H Negative Urine Urobilinogen 8 H Negative mg/dL Urine Leukocyte Esterase 3+ Negative /uL Urine RBC 14 0 - 4 /hpf Urine Microscopic WBC 65 H 0-5 /HPF Urine Squamous Epithelial Cells Mod <5 /hpf Urine Bacteria None seen None Seen /hpf Urine Mucus Few None Seen Urine Yeast (Budding) Occasional None Seen /hpf Urine Glucose Normal Normal mg/dL Urine Test Negative Negative Examination: GENERAL:Normal, HEENT:Normal (No icterus), ABDOMEN:Abnormal (Nondistended, soft, depressible, no scars, no hernias, no masses, suprapubic tenderness, no rebound, no guarding) Problem List/Assessment/Plan Problems: (1) Acute diverticulitis Assessment and Plan is a 29-year-old female who presents with the acute diverticulitis, [place] [address] was reviewed and shows sigmoid colon diverticuli with surrounding inflammation and phlegmon formation. No free air noted on CT. Patient also presented with leukocytosis of 23. Patient will benefit from bowel rest and IV antibiotics. 1. NPO, ice chips for comfort(minimal) 2. Continue with IV antibiotics 3. Pain control 4. Nausea control 5. IV fluid hydration 6. Out of bed and ambulate Plan discussed with Plan discussed with: Patient Visit Coding Surgery Date of Service if different f: Dec 13, 2024 Billing Provider: SLOANE MAN MD Surgery Visit Codes: [id number] - INP CONSULT <110 MIN SLOANE MAN MD Dec 13, 2024 19:36
[2024-12-13] MEDS ORDERED: PIPERACILLIN-TAZOB 3.375GM 100 ML IV SCH (22:00)
[2024-12-13] MEDS: VANCOMYCIN 1GM/250ML KIT 500 ML IV ONE (23:23)
[2024-12-14] VITALS (8 sets, daily range): BP systolic 116–150; BP diastolic 62–83; PULSE 81–104; RESP 18–20; TEMP 98.2–101; O2SAT 93–98
[2024-12-14] MEDS: VANCOMYCIN 1GM/250ML KIT 0 ML IV ONE (00:58)
[2024-12-14] MEDS: PIPERACILLIN-TAZOB 3.375GM 100 ML IV SCH (03:03)
[2024-12-14] MEDS: ONDANSETRON HCL 4 MG/2 ML VIAL IV PRN (03:05)
[2024-12-14] MEDS: PANTOPRAZOLE 40 MG/10 ML VIAL INJ IV SCH (10:43)
[2024-12-14] MEDS: HYDROmorphone HCL 2 MG/ML VL/or syr IV PRN (12:18)
--- NOTE | 2024-12-14 15:14 | DVHPN2 ---
Progress Note - Surgical Date Seen: Dec 14, 2024 Post op day Post op day: 0 Subjective Patient reports: No new complaints (Still having suprapubic pain, pain medicines are helping, had a painful bowel movement today) Review of Systems: Deferred Objective Vital signs Vital Sign Date Time Temp Pulse Resp B/P (MAP) Pulse Ox O2 Delivery O2 Flow Rate FiO2 12/14/24 13:00 101.0 94 18 116/62 (80) 96 101.0 12/14/24 08:15 Room Air* 0 21 Total Intake and Output 12/13/24 12/13/24 12/14/24 15:00 23:00 07:00 Intake Total 350 ml Balance 350 ml Medications Current Medications Medications Dose Ordered Sig/Naye Route Start Time Stop Time Status Last Admin Dose Admin Vancomycin HCl 0 ml @ 0 mls/hr UD IV 12/13/24 15:00 Pantoprazole Sodium 40 mg DAILY IV 12/14/24 10:00 12/14/24 10:43 40 MG Ondansetron HCl 4 mg Q4HP PRN IV 12/13/24 15:00 12/14/24 03:05 4 MG Morphine Sulfate 2 mg Q4HPRN PRN IV 12/13/24 15:00 UNV Morphine Sulfate 2 mg Q4HPRN PRN IV 12/13/24 15:00 Piperacillin Sod/ Tazobactam Sod 100 ml @ 25 mls/hr Q8H IV 12/14/24 02:45 12/14/24 10:39 25 MLS/HR Hydromorphone HCl 1 mg Q4HPRN PRN IV 12/14/24 12:00 12/14/24 12:18 1 MG Vancomycin HCl 250 ml @ 200 mls/hr Q12H IV 12/14/24 14:00 Laboratory Laboratory Tests 12/14/24 10:30 12/13/24 11:09 Test 12/13/24 11:09 Range/Units Serum Glucose 98 74-106 mg/dL Examination: GENERAL:Normal, ABDOMEN:Abnormal (Mild distention, soft, depressible, suprapubic tenderness, no rebound, no guarding) Labs and/or images reviewed: Labs reviewed by me (CBC still pending) Problem List/Assessment/Plan Problems: (1) Acute diverticulitis Assessment and Plan is a 29-year-old female who presents with the acute diverticulitis, [place] [address] was reviewed and shows sigmoid colon diverticuli with surrounding inflammation and phlegmon formation. No free air noted on CT. Patient also presented with leukocytosis of 23. Patient will benefit from bowel rest and IV antibiotics. Interval: Still having some suprapubic tenderness, had a painful bowel movement today. We will continue with medical management. We will leave the patient NPO for today and reassess tomorrow. 1. NPO, ice chips for comfort(minimal) 2. Continue with IV antibiotics 3. Pain control 4. Nausea control 5. IV fluid hydration 6. Out of bed and ambulate 7. Colace b.i.d. (stool softener) 8. No GI laxatives or cathartics Plan discussed with Plan discussed with: Patient Visit Coding Surgery Date of Service if different f: Dec 14, 2024 Billing Provider: SLOANE MAN MD Surgery Visit Codes: [id number] INP/OBS CARE(HIGH) SLOANE MAN MD Dec 14, 2024 15:14
[2024-12-14] MEDS: VANCOMYCIN 1.25GM/250ML 250 ML IV SCH (15:46)
[2024-12-14] MEDS: DOCUSATE SOD 100 MG CAP PO SCH (22:00)
--- NOTE | 2024-12-14 22:16 | DVHPN2 ---
Subjective The patient is seen and examined at bedside. Complain of severe abdominal pain. The patient can not tolerate morphine. Reviewed: Care Plan, H&P, Labs, Medications, Previous Orders, Radiology Changes from previous H/P or p: No Changes Objective Vitals Vital Signs Date Time Temp Pulse Resp B/P (MAP) Pulse Ox O2 Delivery O2 Flow Rate FiO2 12/14/24 21:00 100.3 104 19 117/75 (89) 93 100.3 12/14/24 20:00 Room Air* 0 21 Intake/Output Intake and Output 12/14/24 07:00 Intake Total 350 ml Balance 350 ml Intake Oral 0 ml IV Total 350 ml General Appearance: Alert, Cooperative, moderate distress HEENT: Atraumatic, PERRLA, EOMI, Mucous membr. moist/pink Neck: Supple Lungs: Clear to auscultation, Normal air movement Cardiovascular: Regular rate, Normal S1, Normal S2, No murmurs, Gallops, Rubs Abdomen: Normal bowel sounds, Soft, No tenderness Neuro: Cranial nerves 3-12 NL Psych/Mental Status: Mental status NL Medications Current Medications Medications Dose Ordered Sig/Naye Route Start Time Stop Time Status Last Admin Dose Admin Vancomycin HCl 0 ml @ 0 mls/hr UD IV 12/13/24 15:00 Pantoprazole Sodium 40 mg DAILY IV 12/14/24 10:00 12/14/24 10:43 40 MG Ondansetron HCl 4 mg Q4HP PRN IV 12/13/24 15:00 12/14/24 03:05 4 MG Morphine Sulfate 2 mg Q4HPRN PRN IV 12/13/24 15:00 UNV Morphine Sulfate 2 mg Q4HPRN PRN IV 12/13/24 15:00 Piperacillin Sod/ Tazobactam Sod 100 ml @ 25 mls/hr Q8H IV 12/14/24 02:45 12/14/24 18:14 25 MLS/HR Hydromorphone HCl 1 mg Q4HPRN PRN IV 12/14/24 12:00 12/14/24 18:14 1 MG Vancomycin HCl 250 ml @ 200 mls/hr Q12H IV 12/14/24 14:00 12/14/24 15:46 200 MLS/HR Docusate Sodium 100 mg BID PO 12/14/24 22:00 Laboratory Results Laboratory Tests 12/13/24 11:09 12/14/24 10:30 Urinalysis Test 12/13/24 10:57 Urine Color [place] (Yellow) H Urine Clarity Turbid (Clear) H Urine pH 6.0 (5.0-9.0) Urine Specific [place] 1.032 (1.001-1.035) Urine Protein 1+ (Negative) H Urine Ketones 1+ (Negative) H Urine Blood 1+ /uL (Negative) H Urine Nitrite Negative (Negative) Urine Bilirubin 1+ (Negative) H Urine Urobilinogen 8 mg/dL (Negative) H Urine Leukocyte Esterase 3+ /uL (Negative) Urine RBC 14 /hpf (0 - 4) Urine Microscopic WBC 65 /HPF (0-5) H Urine Squamous Epithelial Cells Mod /hpf (<5) Urine Bacteria None seen /hpf (None Seen) Urine Mucus Few (None Seen) Urine Yeast (Budding) Occasional /hpf (None Urine Glucose Normal mg/dL (Normal) Urine Test Negative (Negative) Labs and/or images reviewed: Labs reviewed by me Assessment/Plan Assessment/Plan Acute diverticulitis Questionable diverticular abscess Leukocytosis Continuing current management. Surgical consultation appreciate Radiology consult Continuing with IV antibiotic Zosyn/vancomycin We will let her bowel rest and continuing the patient on NPO Pain management : I will discontinuing morphine and start the patient on Dilaudid 1 mg IV q.4 PRN for pain Continuing with IV fluid Plan discussed with: Patient My Orders Orders - LOAN MCCONNELL MD Procedure Category Date Status Time Hydromorphone PHA 12/14/24 In Process Injection (Dilaudid 12:00 Date of Service: Dec 14, 2024 Billing Provider: LOAN MCCONNELL MD Common Visit Codes: [id number] INP/OBS CARE(HIGH) LOAN MCCONNELL MD Dec 14, 2024 22:16
[2024-12-15] VITALS (8 sets, daily range): BP systolic 113–153; BP diastolic 69–93; PULSE 92–115; RESP 18–20; TEMP 98.5–100.3; O2SAT 90–97
[2024-12-15 09:46] LABS: Mean Corpuscular Volume 82.8 fL (80.0-100.0)
[2024-12-15 09:48] LABS: Hematocrit 36.4 % (36.0-46.0); Hemoglobin 11.9 g/dL (12.2-16.2); Mean Corpuscular Hemoglobin 27.0 pg (28.0-32.0)
[2024-12-15 09:58] LABS: Albumin 3.6 g/dL (3.2-4.8); Alkaline Phosphatase 91 U/L (46-116); Anion Gap 11 (5-15); BUN/Creatinine Ratio 7.4 (10.0-20.0); Carbon Dioxide 22 mmol/L (20-31); Chloride 101 mmol/L (98-107); Potassium 3.9 mmol/L (3.5-5.1); Total Protein 7.0 g/dL (5.7-8.2)
[2024-12-15 10:05] LABS: Alanine Aminotransferase 9 U/L (7-40); Blood Urea Nitrogen 7 mg/dL (9-23); Calcium 8.5 mg/dL (8.7-10.4); Glucose 118 mg/dL (74-106); Sodium 134 mmol/L (136-145)
[2024-12-15 10:06] LABS: Bilirubin, Total 1.8 mg/dL (0.2-1.0)
[2024-12-15 10:27] LABS: Total Cells Counted 100.0 (100)
--- NOTE | 2024-12-15 11:01 | DVHPN2 ---
Progress Note - Surgical Date Seen: Dec 15, 2024 Post op day Post op day: 0 Subjective Patient reports: Feels better (Patient feels better, less abdominal pain, no more bowel movements, although she had several febrile episodes overnight.) Review of Systems: Deferred Objective Vital signs Vital Sign Date Time Temp Pulse Resp B/P (MAP) Pulse Ox O2 Delivery O2 Flow Rate FiO2 12/15/24 10:43 106 16 128/77 12/15/24 08:42 99.5 90 99.5 12/14/24 20:00 Room Air* 0 21 Total Intake and Output 12/14/24 12/14/24 12/15/24 15:00 23:00 07:00 Intake Total 450 ml 350 ml Output Total 100 ml Balance 350 ml 350 ml Medications Current Medications Medications Dose Ordered Sig/Naye Route Start Time Stop Time Status Last Admin Dose Admin Vancomycin HCl 0 ml @ 0 mls/hr UD IV 12/13/24 15:00 Pantoprazole Sodium 40 mg DAILY IV 12/14/24 10:00 12/15/24 10:22 40 MG Ondansetron HCl 4 mg Q4HP PRN IV 12/13/24 15:00 12/14/24 03:05 4 MG Morphine Sulfate 2 mg Q4HPRN PRN IV 12/13/24 15:00 UNV Morphine Sulfate 2 mg Q4HPRN PRN IV 12/13/24 15:00 Piperacillin Sod/ Tazobactam Sod 100 ml @ 25 mls/hr Q8H IV 12/14/24 02:45 12/15/24 10:23 25 MLS/HR Hydromorphone HCl 1 mg Q4HPRN PRN IV 12/14/24 12:00 12/15/24 10:43 1 MG Vancomycin HCl 250 ml @ 200 mls/hr Q12H IV 12/14/24 14:00 12/15/24 01:14 200 MLS/HR Docusate Sodium 100 mg BID PO 12/14/24 22:00 12/15/24 10:23 100 MG Laboratory Laboratory Tests 12/15/24 06:16 Test 12/15/24 06:16 Range/Units Serum Glucose 118 H 74-106 mg/dL Examination: GENERAL:Normal, ABDOMEN:Abnormal (Nondistended, soft, depressible, suprapubic tenderness (much improved), no rebound, no guarding) Labs and/or images reviewed: Labs reviewed by me (Leukocytosis now at 31 from 23) Problem List/Assessment/Plan Assessment and Plan is a 29-year-old female who presents with the acute diverticulitis, [place] [address] was reviewed and shows sigmoid colon diverticuli with surrounding inflammation and phlegmon formation. No free air noted on CT. Patient also presented with leukocytosis of 23. Patient will benefit from bowel rest and IV antibiotics. Interval: Patient states he is feeling much better but she had some fever episodes overnight and yesterday, leukocytosis now is 31 from 23 and she was tachycardic to the 110s. Patient is likely forming an abscess given that she is not peritonitic and she is feeling better from her abdominal pain. I recommend rescanning the patient with a CT abdomen and pelvis with IV contrast in 4-[address], unless the patient's condition significantly worsens. 1. NPO, ice chips for comfort(minimal) 2. Continue with IV antibiotics 3. Pain control 4. Nausea control 5. IV fluid hydration 6. Out of bed and ambulate 7. Colace b.i.d. (stool softener) 8. No GI laxatives or cathartics 9. CT abdomen and pelvis with IV contrast in 4-[address] to evaluate for abscess formation, sooner if patient's condition worsens My Orders My Orders Orders - SLOANE MAN MD Procedure Category Date Status Time Docusate Sodium PHA 12/14/24 In Process Capsule (Colace 22:00 Plan discussed with Plan discussed with: Patient Visit Coding Surgery Date of Service if different f: Dec 15, 2024 Billing Provider: SLOANE MAN MD Surgery Visit Codes: [id number] INP/OBS CARE(HIGH) SLOANE MAN MD Dec 15, 2024 11:01
--- NOTE | 2024-12-15 12:04 | DVH ---
CLINICAL INFORMATION: Possible abscess. TECHNIQUE: Axial CT images of the abdomen and pelvis were obtained without IV contrast. Coronal and s agittal reformatted images were obtained, reviewed, and stored. Evaluation of the parenchymal organs is limited without IV contrast. Evaluation of the bowel and mesentery is limited without oral contras t. All CT scans at this medical facility are performed using dose modulation techniques as appropriat e to a performed exam including the following: Automated exposure control was utilized; adjustment of the MA and/or KV according to patient size; and use of iterative reconstruction technique. CTDIvol = 27.23 mGy DLP = 1402.27 mGy-cm COMPARISON: CT CT AB PEL WO CON-NO ORAL OR IV on DOS: 12/13/24, US PELVIC on DOS: 12/13/24, US TRANSVAG INAL US NON OB on DOS: 12/13/24 FINDINGS: Lung bases: Mild atelectasis in the lung bases. Liver: Hepatic steatosis. Biliary: Increased density in the gallbladder, possibly sludge. Spleen: Unremarkable. Pancreas: Grossly unremarkable in its noncontrast enhanced appearance. Adrenal glands: Unremarkable. No mass. Kidneys: No hydronephrosis. No renal or ureteral calculi. Aorta/Vascular: No aneurysm or significant calcification. Lymph nodes: Mildly prominent retroperitoneal lymph nodes, similar to the prior exam, including at th e para-aortic and interaortocaval stations, likely reactive. Bowel/mesentery: Nonspecific nondilated fluid-filled small bowel loops. Prominent stranding in the lo wer abdominal mesentery and in the pelvis with ill-defined fluid adjacent to loops of small bowel as well as adjacent to the uterus and adnexa. Appendix is normal in diameter. The appendix extends jodi cent to the area of inflammatory stranding, however the stranding is not centered around the appendix to suggest acute appendicitis. Pelvic organs: Inflammatory stranding in the lower abdomen and pelvis extends adjacent to the uterus and adnexa. Bladder: Inflammatory stranding in the lower abdomen and pelvis extends adjacent to the bladder dome. Mild circumferential thickening of the bladder wall. Cystitis not excluded. Abdominal wall: No mass or hernia. Bones: No acute fracture or suspicious intraosseous lesion. IMPRESSION: 1. Prominent inflammatory stranding in the lower abdomen and pelvis with ill-defined fluid, likely in fectious or inflammatory in nature, extending adjacent to the small bowel loops, uterus, adnexa, and bladder. Differential considerations could include inflammatory bowel disease, pelvic inflammatory di sease, or other infectious or inflammatory etiology. Correlate with clinical findings. 2. Limited evaluation for abscess on noncontrast enhanced CT. Abscess not excluded. 3. Nonspecific nondilated fluid-filled small bowel loops with inflammatory stranding adjacent to annamarie l loops in the lower abdomen and pelvis. Findings may be due to enteritis in the appropriate clinical setting. 4. Appendix is normal in diameter. The appendix extends adjacent to the inflammatory changes in the lower abdomen and pelvis, although the inflammatory changes are not centered around the appendix to s uggest acute appendicitis. 5. Mild circumferential thickening of the bladder wall. Correlate clinically to exclude cystitis. 6. Additional findings as detailed above.
[2024-12-15] MEDS ORDERED: ALBUAER3 IN (15:18)
--- NOTE | 2024-12-15 21:52 | DVHINCON2 ---
Date of service: Dec 15, 2024 Referring Physician Ashley Rogel Reason for Consultation Suspected diverticulitis rule out enterocolitis History of Present Illness 29-year-old presents for evaluation of abdominal pain. Patient reports a one- week history of lower abdominal/pelvic pain with associated nausea, vomiting and chills. She states that over the past four days symptoms have become worse. Denies dysuria or hematuria. CT scan were suggestive of sigmoid diverticulitis with phlegmon and involvement of adjacent small bowel loops with inflammatory stranding Patient has been kept NPO on IV fluid hydration and IV antibiotics. Patient is clinically improving. Repeat CT of the abdomen was ordered today which shows persistent inflammatory changes involving small-bowel and lower pelvic area which appears to be related to the previous area of suspected sigmoid phlegmon Past Medical History Asthma Lactose intolerance Marijuana use Past Surgical History Negative Family History: Diabetes mellitus G8 FATHER FH: lupus G8 MOTHER Gout G8 FATHER Allergies: Coded Allergies: NO KNOWN ALLERGIES (Unverified , 12/13/24) Home Meds Reported Medications Albuterol Sulfate (VENTOLIN MDI) 90 Mcg Ih, 90 MCG IN, INH 12/15/24 Current Medications Current Medications Medications (Trade) Dose Ordered Sig/Naye Route PRN Reason Start Time Stop Time Status Last Admin Docusate Sodium (Colace Capsule) 100 mg BID PO 12/14/24 22:00 12/15/24 10:23 Vital Signs Vital Signs Date Time Temp Pulse Resp B/P (MAP) Pulse Ox O2 Delivery O2 Flow Rate FiO2 12/15/24 20:52 93 16 126/89 12/15/24 17:04 99.7 94 99.7 12/15/24 08:00 Room Air* 0 21 Physical Exam Hemodynamically stable with lower abdominal tenderness Full physical examination deferred Continued intermittent episodes of low-grade fevers Labs/Diagnostic Data Labs Test 12/15/24 06:16 12/14/24 10:30 12/13/24 18:00 12/13/24 11:09 Range/Units White Blood Count 31.1 #*H 4.4-10.8 10^3/uL Red Blood Count 4.40 4.0-5.20 10^6/uL Hemoglobin 11.9 L 12.2-16.2 g/dL Hematocrit 36.4 36.0-46.0 % Mean Corpuscular Volume 82.8 80.0-100.0 fL Mean Corpuscular Hemoglobin 27.0 L 28.0-32.0 pg Mean Corpuscular Hemoglobin Concent 32.6 32.0-36.0 g/dL Red Cell Distribution Width 14.8 H 11.8-14.3 % Platelet Count 526 H 140-450 10^3/uL Mean Platelet Volume 8.1 6.9-10.8 fL Neutrophils (%) (Auto) 37.0-80.0 % Lymphocytes (%) (Auto) 10.0-50.0 % Monocytes (%) (Auto) 0.0-12.0 % Basophils (%) (Auto) 0.0-2.0 % Neutrophils # (Auto) 1.6-8.6 10 ^3/uL Lymphocytes # (Auto) 0.4-5.4 10 ^3/uL Monocytes # (Auto) 0-1.3 10 ^3/uL Differential Total Cells Counted 100.0 100 Neutrophils % (Manual) 78 37.0-80.0 Band Neutrophils % (Manual) 1 Lymphocytes % (Manual) 9 L 10.0-50.0 Monocytes % (Manual) 12 0-12 Eosinophils % (Manual) 0 0-7 Basophils % (Manual) 0 0.0-2.0 Metamyelocytes % (manual) 0 Myelocytes % (Manual) 0 Promyelocytes % (Manual) 0 Blast Cells % (Manual) 0 Reactive Lymphocytes 0 Platelet Estimate Increased Sodium Level 134 L 136-145 mmol/L Potassium Level 3.9 3.5-5.1 mmol/L Chloride Level 101 98-107 mmol/L Carbon Dioxide Level 22 20-31 mmol/L Anion Gap 11 5-15 Blood Urea Nitrogen 7 L 9-23 mg/dL Creatinine 0.94 0.550-1.02 mg/dL Glomerular Filtration Rate Calc 84 >90 mL/min BUN/Creatinine Ratio 7.4 L 10.0-20.0 Serum Glucose 118 H 74-106 mg/dL Calcium Level 8.5 L 8.7-10.4 mg/dL Total Bilirubin 1.8 H 0.2-1.0 mg/dL Aspartate Amino Transferase (AST) 19 13-40 U/L Alanine Aminotransferase (ALT) 9 7-40 U/L Alkaline Phosphatase 91 46-116 U/L Total Protein 7.0 5.7-8.2 g/dL Albumin 3.6 3.2-4.8 g/dL Random Vancomycin Level 6.0 5-10 ug/mL Lactic Acid Level 0.7 0.4-2.0 mmol/L Eosinophils (%) (Auto) 0.7 0.0-7.0 % Eosinophils # (Auto) 0.2 0-0.8 10 ^3/uL Basophils # (Auto) 0.1 0-0.2 10 ^3/uL Nucleated Red Blood Cells 0.0 % Prothrombin Time 12.4 H 9.3-11.8 sec Prothrombin Time INR 1.19 H 0.9-1.15 Activated Partial Thromboplast Time 37.0 H 24.5-34.5 SEC Test 12/13/24 10:57 Range/Units Urine Color [place] H Yellow Urine Clarity Turbid H Clear Urine pH 6.0 5.0-9.0 Urine Specific [place] 1.032 1.001-1.035 Urine Protein 1+ H Negative Urine Ketones 1+ H Negative Urine Blood 1+ H Negative /uL Urine Nitrite Negative Negative Urine Bilirubin 1+ H Negative Urine Urobilinogen 8 H Negative mg/dL Urine Leukocyte Esterase 3+ Negative /uL Urine RBC 14 0 - 4 /hpf Urine Microscopic WBC 65 H 0-5 /HPF Urine Squamous Epithelial Cells Mod <5 /hpf Urine Bacteria None seen None Seen /hpf Urine Mucus Few None Seen Urine Yeast (Budding) Occasional None Seen /hpf Urine Glucose Normal Normal mg/dL Urine Test Negative Negative CT SCAN ABD PELVIS 12/15 MPRESSION: 1. Prominent inflammatory stranding in the lower abdomen and pelvis with ill-de fined fluid, likely infectious or inflammatory in nature, extending adjacent to the small bowel loops, uterus, adnexa, and bladder. Differential considerations could include inflammatory bowel disease, pelvic inflammatory disease, or other infectious or inflammatory etiology. Correlate with clinical findings. 2. Limited evaluation for abscess on noncontrast enhanced CT. Abscess not excluded. 3. Nonspecific nondilated fluid-filled small bowel loops with inflammatory stranding adjacent to bowel loops in the lower abdomen and pelvis. Findings may be due to enteritis in the appropriate clinical setting. 4. Appendix is normal in diameter. The appendix extends adjacent to the inflammatory changes in the lower abdomen and pelvis, although the inflammatory changes are not centered around the appendix to suggest acute appendicitis. 5. Mild circumferential thickening of the bladder wall. Correlate clinically to exclude cystitis. 6. Additional findings as detailed above. Problems(with codes): (1) Leukocytosis (2) Abnormal finding on GI tract imaging (3) Acute diverticulitis (4) Acute UTI (urinary tract infection) Plan/Recommendation Plan Keep this patient strict NPO IV fluid hydration IV antibiotics IV PPI Pain control Monitor labs Check IBD panel Surgical follow up for acute abdominal inflammatory process suspected phlegmon Reactive changes around the small-bowel are likely related to the same process I will order an IBD panel Plan discussed with: Other (Nurse) CAESAR MARTIN MD Dec 15, 2024 21:52
[2024-12-15] MEDS: D5W/SOD CHL 0.45% 1,000 ML IV SCH (23:03)
[2024-12-16] VITALS (9 sets, daily range): BP systolic 120–154; BP diastolic 77–96; PULSE 95–104; RESP 16–20; TEMP 97.9–99.7; O2SAT 90–96
--- NOTE | 2024-12-16 00:22 | DVHPN2 ---
Subjective The patient is seen and examined at bedside. Complain of severe abdominal pain. WBC up to 31 today. Reviewed: Care Plan, H&P, Labs, Medications, Previous Orders, Radiology Changes from previous H/P or p: No Changes Objective Vitals Vital Signs Date Time Temp Pulse Resp B/P (MAP) Pulse Ox O2 Delivery O2 Flow Rate FiO2 12/15/24 21:22 90 16 121/88 12/15/24 21:00 98.5 97 98.5 12/15/24 20:00 Room Air* 0 21 Intake/Output Intake and Output 12/16/24 07:00 Intake Total 400 ml Balance 400 ml Intake Oral 300 ml IV Total 100 ml # Voids 6 General Appearance: Alert, Cooperative, moderate distress HEENT: Atraumatic, PERRLA, EOMI, Mucous membr. moist/pink Neck: Supple Lungs: Clear to auscultation, Normal air movement Cardiovascular: Regular rate, Normal S1, Normal S2, No murmurs, Gallops, Rubs Abdomen: Normal bowel sounds, Soft, No tenderness Neuro: Cranial nerves 3-12 NL Psych/Mental Status: Mental status NL Medications Current Medications Medications Dose Ordered Sig/Naye Route Start Time Stop Time Status Last Admin Dose Admin Vancomycin HCl 0 ml @ 0 mls/hr UD IV 12/13/24 15:00 Pantoprazole Sodium 40 mg DAILY IV 12/14/24 10:00 12/15/24 10:22 40 MG Ondansetron HCl 4 mg Q4HP PRN IV 12/13/24 15:00 12/15/24 20:46 4 MG Morphine Sulfate 2 mg Q4HPRN PRN IV 12/13/24 15:00 UNV Morphine Sulfate 2 mg Q4HPRN PRN IV 12/13/24 15:00 Piperacillin Sod/ Tazobactam Sod 100 ml @ 25 mls/hr Q8H IV 12/14/24 02:45 12/15/24 18:13 25 MLS/HR Hydromorphone HCl 1 mg Q4HPRN PRN IV 12/14/24 12:00 12/15/24 20:52 1 MG Vancomycin HCl 250 ml @ 200 mls/hr Q12H IV 12/14/24 14:00 12/15/24 15:13 200 MLS/HR Docusate Sodium 100 mg BID PO 12/14/24 22:00 12/15/24 10:23 100 MG Dextrose/Sodium Chloride 1,000 ml @ 50 mls/hr Q20H IV 12/15/24 22:30 12/15/24 23:03 50 MLS/HR Laboratory Results Laboratory Tests 12/15/24 06:16 Chemistry Test 12/15/24 06:16 Albumin 3.6 g/dL (3.2-4.8) Calcium Level 8.5 mg/dL (8.7-10.4) L Total Protein 7.0 g/dL (5.7-8.2) LFT Test 12/15/24 06:16 Alanine Aminotransferase (ALT) 9 U/L (7-40) Alkaline Phosphatase 91 U/L (46-116) Aspartate Amino Transferase (AST) 19 U/L (13-40) Total Bilirubin 1.8 mg/dL (0.2-1.0) H Urinalysis Test 12/13/24 10:57 Urine Color [place] (Yellow) H Urine Clarity Turbid (Clear) H Urine pH 6.0 (5.0-9.0) Urine Specific [place] 1.032 (1.001-1.035) Urine Protein 1+ (Negative) H Urine Ketones 1+ (Negative) H Urine Blood 1+ /uL (Negative) H Urine Nitrite Negative (Negative) Urine Bilirubin 1+ (Negative) H Urine Urobilinogen 8 mg/dL (Negative) H Urine Leukocyte Esterase 3+ /uL (Negative) Urine RBC 14 /hpf (0 - 4) Urine Microscopic WBC 65 /HPF (0-5) H Urine Squamous Epithelial Cells Mod /hpf (<5) Urine Bacteria None seen /hpf (None Seen) Urine Mucus Few (None Seen) Urine Yeast (Budding) Occasional /hpf (None Urine Glucose Normal mg/dL (Normal) Urine Test Negative (Negative) Labs and/or images reviewed: Labs reviewed by me Assessment/Plan Assessment/Plan Acute diverticulitis Questionable diverticular abscess Leukocytosis Continuing current management. Surgical consultation appreciate Radiology consult Continuing with IV antibiotic Zosyn/vancomycin We will let her bowel rest and continuing the patient on NPO Pain management : I will discontinuing morphine and start the patient on Dilaudid 1 mg IV q.4 PRN for pain Continuing with IV fluid Repeat CT abdomen and pelvis without contrast since her pain is not control despite dilaudid and WBC elevated to 31 GI consult. Plan discussed with: Patient My Orders Orders - LOAN MCCONNELL MD Procedure Category Date Status Time Ct Ab Pel Wo Con-No CT 12/15/24 Resulted Oral Or Iv 11:06 * [facility] [employer] CONS 12/15/24 Verified 18:33 Date of Service: Dec 15, 2024 Billing Provider: LOAN MCCONNELL MD Common Visit Codes: [id number] INP/OBS CARE(HIGH) LOAN MCCONNELL MD Dec 16, 2024 00:22
[2024-12-16 01:50] LABS: Hematocrit 36.2 % (36.0-46.0); Hemoglobin 12.4 g/dL (12.2-16.2); Mean Corpuscular Hemoglobin 27.5 pg (28.0-32.0); Mean Corpuscular Volume 80.7 fL (80.0-100.0)
[2024-12-16 02:08] LABS: Albumin 3.8 g/dL (3.2-4.8); Alkaline Phosphatase 92 U/L (46-116); Anion Gap 9 (5-15); BUN/Creatinine Ratio 6.2 (10.0-20.0); Calcium 8.9 mg/dL (8.7-10.4); Carbon Dioxide 26 mmol/L (20-31); Chloride 99 mmol/L (98-107); Potassium 3.9 mmol/L (3.5-5.1); Total Protein 7.3 g/dL (5.7-8.2)
[2024-12-16 02:16] LABS: Glucose 109 mg/dL (74-106); Sodium 134 mmol/L (136-145)
[2024-12-16 02:17] LABS: Alanine Aminotransferase < 9 U/L (7-40); Bilirubin, Total 2.8 mg/dL (0.2-1.0); Blood Urea Nitrogen 6 mg/dL (9-23)
[2024-12-16 02:28] LABS: Anisocytosis Slight; Total Cells Counted 100.0 (100)
--- NOTE | 2024-12-16 10:09 | DVHPN2 ---
Progress Note - Surgical Date Seen: Dec 16, 2024 Post op day Post op day: 0 Subjective Patient reports: Feels better (Patient states she is feeling better from a abdominal pain standpoint, she is not nauseous, not vomiting, no BMs yesterday, not feeling hungry yet) Review of Systems: Deferred Objective Vital signs Vital Sign Date Time Temp Pulse Resp B/P (MAP) Pulse Ox O2 Delivery O2 Flow Rate FiO2 12/16/24 08:43 99.7 104 20 133/90 (104) 90 99.7 12/15/24 20:00 Room Air* 0 21 Total Intake and Output 12/15/24 12/15/24 12/16/24 15:00 23:00 07:00 Intake Total 400 ml 350 ml Balance 400 ml 350 ml Medications Current Medications Medications Dose Ordered Sig/Naye Route Start Time Stop Time Status Last Admin Dose Admin Vancomycin HCl 0 ml @ 0 mls/hr UD IV 12/13/24 15:00 Pantoprazole Sodium 40 mg DAILY IV 12/14/24 10:00 12/16/24 09:05 40 MG Ondansetron HCl 4 mg Q4HP PRN IV 12/13/24 15:00 12/16/24 06:00 4 MG Morphine Sulfate 2 mg Q4HPRN PRN IV 12/13/24 15:00 UNV Morphine Sulfate 2 mg Q4HPRN PRN IV 12/13/24 15:00 Piperacillin Sod/ Tazobactam Sod 100 ml @ 25 mls/hr Q8H IV 12/14/24 02:45 12/16/24 09:06 25 MLS/HR Hydromorphone HCl 1 mg Q4HPRN PRN IV 12/14/24 12:00 12/16/24 06:04 1 MG Vancomycin HCl 250 ml @ 200 mls/hr Q12H IV 12/14/24 14:00 12/16/24 02:34 200 MLS/HR Docusate Sodium 100 mg BID PO 12/14/24 22:00 12/15/24 10:23 100 MG Dextrose/Sodium Chloride 1,000 ml @ 50 mls/hr Q20H IV 12/15/24 22:30 12/15/24 23:03 50 MLS/HR Laboratory Laboratory Tests 12/16/24 01:20 Test 12/16/24 01:20 Range/Units Serum Glucose 109 H 74-106 mg/dL Examination: GENERAL:Normal, ABDOMEN:Abnormal (Nondistended, soft, depressible, suprapubic tenderness, no rebound, no guarding) Labs and/or images reviewed: Labs reviewed by me (Leukocytosis down trended to 27 from 31), Image(s) reviewed by me (CT from 12/15 shows the sigmoid inflammation with phlegmon, no abscess) Problem List/Assessment/Plan Assessment and Plan is a 29-year-old female who presents with the acute diverticulitis, [place] [address] was reviewed and shows sigmoid colon diverticuli with surrounding inflammation and phlegmon formation. No free air noted on CT. Patient also presented with leukocytosis of 23. Patient will benefit from bowel rest and IV antibiotics. Interval: Patient continues to improve from an abdominal pain standpoint. CT scan from yesterday did not show anything new, only shows the phlegmonous collection surrounding the sigmoid colon. It usually takes 5-6 days for an abscess to form, I believe patient is forming an abscess and this is why her white count jumped yesterday, but is still not seen on imaging. Also recommend IV contrast whenever you obtain a CT for this type of issue, as noncontrast CT is not going to show you the bowel wall, or the separation of the bowel wall and the abscess. Patient is not ready for food intake yet but she is okay to have minimal ice chips and sips of water. 1. NPO, except for ice chips and sips of water 2. Continue with IV antibiotics 3. Pain control 4. Nausea control 5. IV fluid hydration 6. Out of bed and ambulate 7. Colace b.i.d. (stool softener) 8. No GI laxatives or cathartics 9. He has a CT ordered for tomorrow, I recommend holding off on that CT until 5- 6 days have passed from the initial CT scan, so at the earliest the but it will be better if it is obtained on the . CT needs to be abdomen pelvis with IV contrast Plan discussed with Plan discussed with: Patient Visit Coding Surgery Date of Service if different f: Dec 16, 2024 Billing Provider: SLOANE MAN MD Surgery Visit Codes: [id number] INP/OBS CARE(HIGH) SLOANE MAN MD Dec 16, 2024 10:09
[2024-12-16] MEDS ORDERED: CLINIMIX PER PHARMACY 0 ML IV SCH (11:00)
[2024-12-16] MEDS ORDERED: DEXTROSE (50%) 50ML SYRG IV SCH (12:15)
[2024-12-16 12:27] LABS: Magnesium 2.1 mg/dL (1.6-2.6); Triglycerides 78.0 mg/dL (< 150)
--- NOTE | 2024-12-16 13:27 | DVHPN2 ---
Subjective The patient is seen and examined at bedside. Complain of severe abdominal pain. WBC trending down but still high 27.3. Reviewed: Care Plan, H&P, Labs, Medications, Previous Orders, Radiology Changes from previous H/P or p: No Changes Objective Vitals Vital Signs Date Time Temp Pulse Resp B/P (MAP) Pulse Ox O2 Delivery O2 Flow Rate FiO2 12/16/24 12:36 98.8 95 20 140/92 (108) 94 98.8 12/16/24 08:00 Room Air* 0 21 Intake/Output Intake and Output 12/16/24 07:00 Intake Total 750 ml Balance 750 ml Intake Oral 300 ml IV Total 450 ml # Voids 15 General Appearance: Alert, Cooperative, moderate distress HEENT: Atraumatic, PERRLA, EOMI, Mucous membr. moist/pink Neck: Supple Lungs: Clear to auscultation, Normal air movement Cardiovascular: Regular rate, Normal S1, Normal S2, No murmurs, Gallops, Rubs Abdomen: Normal bowel sounds, Soft, No tenderness Neuro: Cranial nerves 3-12 NL Psych/Mental Status: Mental status NL Medications Current Medications Medications Dose Ordered Sig/Naye Route Start Time Stop Time Status Last Admin Dose Admin Vancomycin HCl 0 ml @ 0 mls/hr UD IV 12/13/24 15:00 Pantoprazole Sodium 40 mg DAILY IV 12/14/24 10:00 12/16/24 09:05 40 MG Ondansetron HCl 4 mg Q4HP PRN IV 12/13/24 15:00 12/16/24 06:00 4 MG Morphine Sulfate 2 mg Q4HPRN PRN IV 12/13/24 15:00 UNV Morphine Sulfate 2 mg Q4HPRN PRN IV 12/13/24 15:00 Piperacillin Sod/ Tazobactam Sod 100 ml @ 25 mls/hr Q8H IV 12/14/24 02:45 12/16/24 09:06 25 MLS/HR Hydromorphone HCl 1 mg Q4HPRN PRN IV 12/14/24 12:00 12/16/24 12:04 1 MG Docusate Sodium 100 mg BID PO 12/14/24 22:00 12/15/24 10:23 100 MG Dextrose/Sodium Chloride 1,000 ml @ 50 mls/hr Q20H IV 12/15/24 22:30 12/15/24 23:03 50 MLS/HR Vancomycin HCl 250 ml @ 200 mls/hr Q8H IV 12/16/24 14:00 Amino Acids 0 ml @ 0 mls/hr PER PHARMACY IV 12/16/24 11:00 Diagnostic Test (Pha) 1 strip Q6HR 12/16/24 18:00 Insulin Human Regular FOLLOW SLIDING SCALE Q6HR SC 12/16/24 18:00 Dextrose 50 ml UD IV 12/16/24 12:15 Amino Acids/ Electrolytes/ Dextrose 1,000 ml @ 41 mls/hr DAILY@2200 IV 12/16/24 22:00 Laboratory Results Laboratory Tests 12/16/24 01:20 Chemistry Test 12/16/24 01:20 Albumin 3.8 g/dL (3.2-4.8) Calcium Level 8.9 mg/dL (8.7-10.4) Magnesium Level 2.1 mg/dL (1.6-2.6) Phosphorus Level 4.1 mg/dL (2.4-5.1) Total Protein 7.3 g/dL (5.7-8.2) Lipid panel Test 12/16/24 01:20 Triglycerides Level 78 mg/dL (< 150) LFT Test 12/16/24 01:20 Alanine Aminotransferase (ALT) < 9 U/L (7-40) Alkaline Phosphatase 92 U/L (46-116) Aspartate Amino Transferase (AST) 18 U/L (13-40) Total Bilirubin 2.8 mg/dL (0.2-1.0) H Urinalysis Test 12/13/24 10:57 Urine Color [place] (Yellow) H Urine Clarity Turbid (Clear) H Urine pH 6.0 (5.0-9.0) Urine Specific [place] 1.032 (1.001-1.035) Urine Protein 1+ (Negative) H Urine Ketones 1+ (Negative) H Urine Blood 1+ /uL (Negative) H Urine Nitrite Negative (Negative) Urine Bilirubin 1+ (Negative) H Urine Urobilinogen 8 mg/dL (Negative) H Urine Leukocyte Esterase 3+ /uL (Negative) Urine RBC 14 /hpf (0 - 4) Urine Microscopic WBC 65 /HPF (0-5) H Urine Squamous Epithelial Cells Mod /hpf (<5) Urine Bacteria None seen /hpf (None Seen) Urine Mucus Few (None Seen) Urine Yeast (Budding) Occasional /hpf (None Urine Glucose Normal mg/dL (Normal) Urine Test Negative (Negative) Labs and/or images reviewed: Labs reviewed by me Assessment/Plan Assessment/Plan Acute diverticulitis Questionable diverticular abscess Leukocytosis Continuing current management. Surgical consultation appreciate Radiology consult Continuing with IV antibiotic Zosyn/vancomycin We will let her bowel rest and continuing the patient on NPO Pain management : I will discontinuing morphine and start the patient on Dilaudid 1 mg IV q.4 PRN for pain Continuing with IV fluid Repeat CT abdomen and pelvis: Prominent inflammatory stranding in the lower abdomen and pelvis with ill-defined fluid, likely infectious or inflammatory in nature, extending adjacent to the small bowel loops, uterus, adnexa, and bladder. Differential considerations could include inflammatory bowel disease, pelvic inflammatory disease, or other infectious or inflammatory etiology. Correlate with clinical findings. Limited evaluation for abscess on noncontrast enhanced CT. Abscess not excluded. Nonspecific nondilated fluid-filled small bowel loops with inflammatory stranding adjacent to bowel loops in the lower abdomen and pelvis. Findings may be due to enteritis in the appropriate clinical setting. Appendix is normal in diameter. The appendix extends adjacent to the inflammatory changes in the lower abdomen and pelvis, although the inflammatory changes are not centered around the appendix to suggest acute appendicitis.. Mild circumferential thickening of the bladder wall. Correlate clinically to exclude cystitis. GI consult. Plan discussed with: Patient My Orders Orders - LOAN MCCONNELL MD Procedure Category Date Status Time * Gi [facility] [employer] CONS 12/15/24 Verified 18:33 Date of Service: Dec 16, 2024 Billing Provider: LOAN MCCONNELL MD Common Visit Codes: [id number] INP/OBS CARE(HIGH) LOAN MCCONNELL MD Dec 16, 2024 13:27
[2024-12-16] MEDS: VANCOMYCIN 1.25GM/250ML 250 ML IV SCH (14:00)
[2024-12-16] MEDS: InsuLIN REG 1unit/0.01ml Soln (100units/ml) SC SCH (17:10)
[2024-12-16] MEDS: ACCU-CHEK COMFORT CURVE STRIP VI SCH (17:10)
--- NOTE | 2024-12-16 19:59 | DVHPN2 ---
Progress Note - Dictate Date Seen: Dec 16, 2024 Medical Necessity Reason Pt with a Central, PICC or Fol: No Subjective Patient seen at bedside resting comfortably She continues to complain of left lower quadrant pain only minimally improved Temperature curve has defervesced, T-max was 99.7 Leukocytosis improving slightly vital signs Vital Sign Date Time Temp Pulse Resp B/P (MAP) Pulse Ox O2 Delivery O2 Flow Rate FiO2 12/16/24 18:00 96 16 132/78 12/16/24 16:52 99.5 90 99.5 12/16/24 08:00 Room Air* 0 21 Total Intake and Output 12/15/24 12/15/24 12/16/24 15:00 23:00 07:00 Intake Total 400 ml 350 ml Balance 400 ml 350 ml medications Current Medications Medications Dose Ordered Sig/Naye Route Start Time Stop Time Status Last Admin Dose Admin Vancomycin HCl 0 ml @ 0 mls/hr UD IV 12/13/24 15:00 Pantoprazole Sodium 40 mg DAILY IV 12/14/24 10:00 12/16/24 09:05 40 MG Ondansetron HCl 4 mg Q4HP PRN IV 12/13/24 15:00 12/16/24 16:35 4 MG Morphine Sulfate 2 mg Q4HPRN PRN IV 12/13/24 15:00 UNV Morphine Sulfate 2 mg Q4HPRN PRN IV 12/13/24 15:00 Piperacillin Sod/ Tazobactam Sod 100 ml @ 25 mls/hr Q8H IV 12/14/24 02:45 12/16/24 17:24 25 MLS/HR Hydromorphone HCl 1 mg Q4HPRN PRN IV 12/14/24 12:00 12/16/24 16:36 1 MG Docusate Sodium 100 mg BID PO 12/14/24 22:00 12/15/24 10:23 100 MG Dextrose/Sodium Chloride 1,000 ml @ 50 mls/hr Q20H IV 12/15/24 22:30 12/16/24 17:24 50 MLS/HR Vancomycin HCl 250 ml @ 200 mls/hr Q8H IV 12/16/24 14:00 12/16/24 14:00 200 MLS/HR Amino Acids 0 ml @ 0 mls/hr PER PHARMACY IV 12/16/24 11:00 Diagnostic Test (Pha) 1 strip Q6HR 12/16/24 18:00 12/16/24 17:10 1 STRIP Insulin Human Regular FOLLOW SLIDING SCALE Q6HR SC 12/16/24 18:00 Dextrose 50 ml UD IV 12/16/24 12:15 Amino Acids/ Electrolytes/ Dextrose 1,000 ml @ 41 mls/hr DAILY@2200 IV 12/16/24 22:00 objective General Appearance: Alert, Cooperative, mild distress HEENT: Atraumatic, PERRLA, EOMI, Mucous membr. moist/pink Neck: Supple Lungs: Clear to auscultation, Normal air movement Cardiovascular: Regular rate, Normal S1, Normal S2, No murmurs, Gallops, Rubs Abdomen: Normal bowel sounds, Soft, No tenderness Neuro: Cranial nerves 3-12 NL Psych/Mental Status: Mental status NL laboratory and microbiology Laboratory Tests 12/16/24 01:20 Test 12/16/24 01:20 Range/Units Serum Glucose 109 H 74-106 mg/dL Problems(with codes): (1) Abnormal finding on GI tract imaging (2) Leukocytosis (3) Acute diverticulitis (4) Acute UTI (urinary tract infection) Prognosis Plan Keep this patient strict NPO IV fluid hydration IV antibiotics IV PPI Pain control Monitor labs Check IBD panel Start IV Clinimix Surgical follow up for acute abdominal inflammatory process suspected phlegmon Reactive changes around the small-bowel are likely related to the same process Repeat pelvic CT or MRI with contrast in 24-48 hours Plan discussed with: Patient, Other (Nurse) CAESAR MARTIN MD Dec 16, 2024 19:59
[2024-12-16] MEDS: AMINO ACID INFUSION IN D10W 1,000 ML IV SCH (21:58)
[2024-12-17] VITALS (10 sets, daily range): BP systolic 110–156; BP diastolic 69–80; PULSE 80–99; RESP 18–20; TEMP 97.6–98.4; O2SAT 89–97
[2024-12-17 06:47] LABS: Nucleated Red Blood Cells % 0.0 %
[2024-12-17 06:50] LABS: Hematocrit 35.3 % (36.0-46.0); Hemoglobin 11.5 g/dL (12.2-16.2); Mean Corpuscular Hemoglobin 26.6 pg (28.0-32.0); Mean Corpuscular Volume 81.3 fL (80.0-100.0)
[2024-12-17 07:08] LABS: Albumin 3.5 g/dL (3.2-4.8); Alkaline Phosphatase 94 U/L (46-116); Anion Gap 12 (5-15); BUN/Creatinine Ratio 5.1 (10.0-20.0); Carbon Dioxide 28 mmol/L (20-31); Chloride 98 mmol/L (98-107); Glucose 103 mg/dL (74-106); Magnesium 2.1 mg/dL (1.6-2.6); Sodium 138 mmol/L (136-145); Total Protein 6.9 g/dL (5.7-8.2)
[2024-12-17 07:18] LABS: Alanine Aminotransferase < 9 U/L (7-40); Bilirubin, Total 2.2 mg/dL (0.2-1.0); Blood Urea Nitrogen 6 mg/dL (9-23); Calcium 8.6 mg/dL (8.7-10.4); Potassium 3.5 mmol/L (3.5-5.1)
--- NOTE | 2024-12-17 12:15 | DVHPN2 ---
Subjective The patient is seen and examined at bedside. Complain of severe abdominal pain. WBC trending down but still high 22.1. The patient said she doesn't want to eat. Reviewed: Care Plan, H&P, Labs, Medications, Previous Orders, Radiology Changes from previous H/P or p: No Changes Objective Vitals Vital Signs Date Time Temp Pulse Resp B/P (MAP) Pulse Ox O2 Delivery O2 Flow Rate FiO2 12/17/24 09:09 56 19 110/74 12/17/24 09:00 97.9 93 97.9 12/17/24 07:30 Room Air* 0 21 Intake/Output Intake and Output 12/17/24 07:00 Intake Total 1750 ml Balance 1750 ml Intake Oral 0 ml IV Total 1750 ml # Voids 8 General Appearance: Alert, Cooperative, moderate distress HEENT: Atraumatic, PERRLA, EOMI, Mucous membr. moist/pink Neck: Supple Lungs: Clear to auscultation, Normal air movement Cardiovascular: Regular rate, Normal S1, Normal S2, No murmurs, Gallops, Rubs Abdomen: Normal bowel sounds, Soft, No tenderness Neuro: Cranial nerves 3-12 NL Psych/Mental Status: Mental status NL Medications Current Medications Medications Dose Ordered Sig/Naye Route Start Time Stop Time Status Last Admin Dose Admin Vancomycin HCl 0 ml @ 0 mls/hr UD IV 12/13/24 15:00 Pantoprazole Sodium 40 mg DAILY IV 12/14/24 10:00 12/17/24 09:07 40 MG Ondansetron HCl 4 mg Q4HP PRN IV 12/13/24 15:00 12/17/24 09:08 4 MG Morphine Sulfate 2 mg Q4HPRN PRN IV 12/13/24 15:00 UNV Morphine Sulfate 2 mg Q4HPRN PRN IV 12/13/24 15:00 Piperacillin Sod/ Tazobactam Sod 100 ml @ 25 mls/hr Q8H IV 12/14/24 02:45 12/17/24 09:07 25 MLS/HR Hydromorphone HCl 1 mg Q4HPRN PRN IV 12/14/24 12:00 12/17/24 09:09 1 MG Docusate Sodium 100 mg BID PO 12/14/24 22:00 12/15/24 10:23 100 MG Dextrose/Sodium Chloride 1,000 ml @ 50 mls/hr Q20H IV 12/15/24 22:30 12/16/24 17:24 50 MLS/HR Vancomycin HCl 250 ml @ 200 mls/hr Q8H IV 12/16/24 14:00 12/17/24 06:41 200 MLS/HR Amino Acids 0 ml @ 0 mls/hr PER PHARMACY IV 12/16/24 11:00 Diagnostic Test (Pha) 1 strip Q6HR 12/16/24 18:00 12/17/24 06:40 1 STRIP Insulin Human Regular FOLLOW SLIDING SCALE Q6HR SC 12/16/24 18:00 Dextrose 50 ml UD IV 12/16/24 12:15 Amino Acids/ Electrolytes/ Dextrose 1,000 ml @ 41 mls/hr DAILY@2200 IV 12/16/24 22:00 12/16/24 21:58 41 MLS/HR Albuterol 2.5 mg Q6HPRN PRN NEB 12/16/24 21:00 Laboratory Results Laboratory Tests 12/17/24 05:19 Chemistry Test 12/17/24 05:19 Albumin 3.5 g/dL (3.2-4.8) Calcium Level 8.6 mg/dL (8.7-10.4) L Magnesium Level 2.1 mg/dL (1.6-2.6) Phosphorus Level 4.5 mg/dL (2.4-5.1) Total Protein 6.9 g/dL (5.7-8.2) LFT Test 12/17/24 05:19 Alanine Aminotransferase (ALT) < 9 U/L (7-40) Alkaline Phosphatase 94 U/L (46-116) Aspartate Amino Transferase (AST) 19 U/L (13-40) Total Bilirubin 2.2 mg/dL (0.2-1.0) H Urinalysis Test 12/13/24 10:57 Urine Color [place] (Yellow) H Urine Clarity Turbid (Clear) H Urine pH 6.0 (5.0-9.0) Urine Specific [place] 1.032 (1.001-1.035) Urine Protein 1+ (Negative) H Urine Ketones 1+ (Negative) H Urine Blood 1+ /uL (Negative) H Urine Nitrite Negative (Negative) Urine Bilirubin 1+ (Negative) H Urine Urobilinogen 8 mg/dL (Negative) H Urine Leukocyte Esterase 3+ /uL (Negative) Urine RBC 14 /hpf (0 - 4) Urine Microscopic WBC 65 /HPF (0-5) H Urine Squamous Epithelial Cells Mod /hpf (<5) Urine Bacteria None seen /hpf (None Seen) Urine Mucus Few (None Seen) Urine Yeast (Budding) Occasional /hpf (None Urine Glucose Normal mg/dL (Normal) Urine Test Negative (Negative) Labs and/or images reviewed: Labs reviewed by me Assessment/Plan Assessment/Plan Acute diverticulitis Questionable diverticular abscess Leukocytosis Continuing current management. Surgical consultation appreciate Radiology consult Continuing with IV antibiotic Zosyn/vancomycin We will let her bowel rest and continuing the patient on NPO Pain management : I will discontinuing morphine and start the patient on Dilaudid 1 mg IV q.4 PRN for pain Continuing with IV fluid Repeat CT abdomen and pelvis: Prominent inflammatory stranding in the lower abdomen and pelvis with ill-defined fluid, likely infectious or inflammatory in nature, extending adjacent to the small bowel loops, uterus, adnexa, and bladder. Differential considerations could include inflammatory bowel disease, pelvic inflammatory disease, or other infectious or inflammatory etiology. Correlate with clinical findings. Limited evaluation for abscess on noncontrast enhanced CT. Abscess not excluded. Nonspecific nondilated fluid-filled small bowel loops with inflammatory stranding adjacent to bowel loops in the lower abdomen and pelvis. Findings may be due to enteritis in the appropriate clinical setting. Appendix is normal in diameter. The appendix extends adjacent to the inflammatory changes in the lower abdomen and pelvis, although the inflammatory changes are not centered around the appendix to suggest acute appendicitis.. Mild circumferential thickening of the bladder wall. Correlate clinically to exclude cystitis. GI consult appreciate. waiting for surgeon input. Plan discussed with: Patient Date of Service: Dec 17, 2024 Billing Provider: LOAN MCCONNELL MD Common Visit Codes: [id number] INP/OBS CARE(HIGH) LOAN MCCONNELL MD Dec 17, 2024 12:15
[2024-12-17] MEDS: POTASSIUM CHL 20MEQ/100ML 100 ML IV ONE (12:32)
--- NOTE | 2024-12-17 13:08 | DVHPN2 ---
Progress Note - Surgical Date Seen: Dec 17, 2024 Post op day Post op day: 0 Subjective Patient reports: No new complaints (Some suprapubic pain episodes, but much improved, no bowel movements last 24 hours) Review of Systems: Deferred Objective Vital signs Vital Sign Date Time Temp Pulse Resp B/P (MAP) Pulse Ox O2 Delivery O2 Flow Rate FiO2 12/17/24 09:09 56 19 110/74 12/17/24 09:00 97.9 93 97.9 12/17/24 07:30 Room Air* 0 21 Total Intake and Output 12/16/24 12/16/24 12/17/24 15:00 23:00 07:00 Intake Total 300 ml 1450 ml 0 ml Balance 300 ml 1450 ml 0 ml Medications Current Medications Medications Dose Ordered Sig/Naye Route Start Time Stop Time Status Last Admin Dose Admin Vancomycin HCl 0 ml @ 0 mls/hr UD IV 12/13/24 15:00 Pantoprazole Sodium 40 mg DAILY IV 12/14/24 10:00 12/17/24 09:07 40 MG Ondansetron HCl 4 mg Q4HP PRN IV 12/13/24 15:00 12/17/24 09:08 4 MG Morphine Sulfate 2 mg Q4HPRN PRN IV 12/13/24 15:00 UNV Morphine Sulfate 2 mg Q4HPRN PRN IV 12/13/24 15:00 Piperacillin Sod/ Tazobactam Sod 100 ml @ 25 mls/hr Q8H IV 12/14/24 02:45 12/17/24 09:07 25 MLS/HR Hydromorphone HCl 1 mg Q4HPRN PRN IV 12/14/24 12:00 12/17/24 09:09 1 MG Docusate Sodium 100 mg BID PO 12/14/24 22:00 12/15/24 10:23 100 MG Dextrose/Sodium Chloride 1,000 ml @ 50 mls/hr Q20H IV 12/15/24 22:30 12/16/24 17:24 50 MLS/HR Vancomycin HCl 250 ml @ 200 mls/hr Q8H IV 12/16/24 14:00 12/17/24 06:41 200 MLS/HR Amino Acids 0 ml @ 0 mls/hr PER PHARMACY IV 12/16/24 11:00 Diagnostic Test (Pha) 1 strip Q6HR 12/16/24 18:00 12/17/24 12:00 1 STRIP Insulin Human Regular FOLLOW SLIDING SCALE Q6HR SC 12/16/24 18:00 12/17/24 12:34 4 UNITS Dextrose 50 ml UD IV 12/16/24 12:15 Amino Acids/ Electrolytes/ Dextrose 1,000 ml @ 41 mls/hr DAILY@2200 IV 12/16/24 22:00 12/16/24 21:58 41 MLS/HR Albuterol 2.5 mg Q6HPRN PRN NEB 12/16/24 21:00 Laboratory Laboratory Tests 12/17/24 05:19 Test 12/17/24 05:19 Range/Units Serum Glucose 103 74-106 mg/dL Microbiology Date/Time Source Procedure Growth Status 12/16/24 02:00 Urine - Midstream Clean Catch Urine Culture - Preliminary Resulted Examination: GENERAL:Normal, ABDOMEN:Abnormal (Nondistended, soft, depressible, suprapubic tenderness, no rebound, no guarding) Labs and/or images reviewed: Labs reviewed by me (Leukocytosis down trending 22.3 from 27.2) Problem List/Assessment/Plan Assessment and Plan is a 29-year-old female who presents with the acute diverticulitis, [place] [address] was reviewed and shows sigmoid colon diverticuli with surrounding inflammation and phlegmon formation. No free air noted on CT. Patient also presented with leukocytosis of 23. Patient will benefit from bowel rest and IV antibiotics. Interval: Patient continues to improve. Patient is feeling hungry now, recommend starting a liquid diet and assess toleration. 1. Okay for clear liquid diet per surgical standpoint 2. Continue with IV antibiotics 3. Pain control 4. Nausea control 5. IV fluid hydration 6. Out of bed and ambulate 7. Colace b.i.d. (stool softener) 8. No GI laxatives or cathartics Plan discussed with Plan discussed with: Patient Visit Coding Surgery Date of Service if different f: Dec 17, 2024 Billing Provider: SLOANE MAN MD Surgery Visit Codes: [id number] INP/OBS CARE(HIGH) SLOANE MAN MD Dec 17, 2024 13:08
[2024-12-17] MEDS: VANCOMYCIN 1GM/250ML KIT 250 ML IV SCH (15:07)
[2024-12-17] MEDS: ALBUTEROL SULF 2.5 MG/0.5ML(0.5%) NEB SOLN NEB PRN (19:26)
--- NOTE | 2024-12-17 22:28 | DVHPN2 ---
Progress Note - Dictate Date Seen: Dec 17, 2024 Medical Necessity Reason Pt with a Central, PICC or Fol: No Subjective Patient seen at bedside resting comfortably Abdominal pain has improved, no bowel movement Patient is now afebrile Leukocytosis improving slightly vital signs Vital Sign Date Time Temp Pulse Resp B/P (MAP) Pulse Ox O2 Delivery O2 Flow Rate FiO2 12/17/24 21:00 97.6 99 19 156/77 (103) 94 97.6 12/17/24 20:00 Room Air* 0 21 Total Intake and Output 12/16/24 12/16/24 12/17/24 15:00 23:00 07:00 Intake Total 300 ml 1450 ml 0 ml Balance 300 ml 1450 ml 0 ml medications Current Medications Medications Dose Ordered Sig/Naye Route Start Time Stop Time Status Last Admin Dose Admin Vancomycin HCl 0 ml @ 0 mls/hr UD IV 12/13/24 15:00 Pantoprazole Sodium 40 mg DAILY IV 12/14/24 10:00 12/17/24 09:07 40 MG Ondansetron HCl 4 mg Q4HP PRN IV 12/13/24 15:00 12/17/24 18:26 4 MG Morphine Sulfate 2 mg Q4HPRN PRN IV 12/13/24 15:00 UNV Morphine Sulfate 2 mg Q4HPRN PRN IV 12/13/24 15:00 Piperacillin Sod/ Tazobactam Sod 100 ml @ 25 mls/hr Q8H IV 12/14/24 02:45 12/17/24 18:28 25 MLS/HR Hydromorphone HCl 1 mg Q4HPRN PRN IV 12/14/24 12:00 12/17/24 18:27 1 MG Docusate Sodium 100 mg BID PO 12/14/24 22:00 12/17/24 21:49 100 MG Dextrose/Sodium Chloride 1,000 ml @ 50 mls/hr Q20H IV 12/15/24 22:30 12/17/24 13:48 50 MLS/HR Amino Acids 0 ml @ 0 mls/hr PER PHARMACY IV 12/16/24 11:00 Diagnostic Test (Pha) 1 strip Q6HR 12/16/24 18:00 12/17/24 17:31 1 STRIP Insulin Human Regular FOLLOW SLIDING SCALE Q6HR SC 12/16/24 18:00 12/17/24 12:34 4 UNITS Dextrose 50 ml UD IV 12/16/24 12:15 Amino Acids/ Electrolytes/ Dextrose 1,000 ml @ 41 mls/hr DAILY@2200 IV 12/16/24 22:00 12/17/24 21:49 41 MLS/HR Albuterol 2.5 mg Q6HPRN PRN NEB 12/16/24 21:00 12/17/24 19:26 2.5 MG Vancomycin HCl 250 ml @ 250 mls/hr Q8H IV 12/17/24 15:00 12/17/24 15:07 250 MLS/HR objective General Appearance: Alert, Cooperative, mild distress HEENT: Atraumatic, PERRLA, EOMI, Mucous membr. moist/pink Neck: Supple Lungs: Clear to auscultation, Normal air movement Cardiovascular: Regular rate, Normal S1, Normal S2, No murmurs, Gallops, Rubs Abdomen: Normal bowel sounds, Soft, No tenderness Neuro: Cranial nerves 3-12 NL Psych/Mental Status: Mental status NL laboratory and microbiology Laboratory Tests 12/17/24 05:19 Test 12/17/24 05:19 Range/Units Serum Glucose 103 74-106 mg/dL Problems(with codes): (1) Abnormal finding on GI tract imaging (2) Leukocytosis (3) Acute diverticulitis (4) Acute UTI (urinary tract infection) Prognosis Plan IV fluid hydration, IV antibiotics Pain control Stool softeners Start ice chips and water and then advance to clear liquids Monitor labs Plan discussed with: Patient CAESAR MARTIN MD Dec 17, 2024 22:28
[2024-12-18] VITALS (9 sets, daily range): BP systolic 119–137; BP diastolic 65–89; PULSE 77–94; RESP 18–19; TEMP 98.3–99.2; O2SAT 92–98
[2024-12-18 06:40] LABS: Hematocrit 37.2 % (36.0-46.0); Hemoglobin 12.0 g/dL (12.2-16.2); Mean Corpuscular Hemoglobin 27.0 pg (28.0-32.0); Mean Corpuscular Volume 83.6 fL (80.0-100.0); Nucleated Red Blood Cells % 0.0 %
[2024-12-18 06:54] LABS: Anion Gap 11.0 (5-15); Carbon Dioxide 26.0 mmol/L (20-31); Chloride 104.0 mmol/L (98-107); Potassium 4.1 mmol/L (3.5-5.1); Sodium 141.0 mmol/L (136-145)
[2024-12-18 07:00] LABS: Albumin 3.3 g/dL (3.2-4.8); BUN/Creatinine Ratio 8.6 (10.0-20.0); Blood Urea Nitrogen 11.0 mg/dL (9-23)
[2024-12-18 07:01] LABS: Magnesium 2.2 mg/dL (1.6-2.6)
[2024-12-18 07:09] LABS: Calcium 8.4 mg/dL (8.7-10.4); Glucose 107.0 mg/dL (74-106)
--- NOTE | 2024-12-18 10:38 | DVHPN2 ---
Subjective The patient is seen and examined at bedside. Complain of severe abdominal pain. WBC trending down but still high 20.0. The patient said she want clear liquid diet today. Surgeon want to start patient since yesterday but patient did not want it. Reviewed: Care Plan, H&P, Labs, Medications, Previous Orders, Radiology Changes from previous H/P or p: No Changes Objective Vitals Vital Signs Date Time Temp Pulse Resp B/P (MAP) Pulse Ox O2 Delivery O2 Flow Rate FiO2 12/18/24 09:53 80 16 153/78 12/18/24 09:10 92 Room Air 12/18/24 09:10 0 21 12/18/24 09:00 98.6 98.6 Intake/Output Intake and Output 12/18/24 07:00 Intake Total 1350 ml Balance 1350 ml Intake Oral 1250 ml IV Total 100 ml # Voids 13 General Appearance: Alert, Cooperative, moderate distress HEENT: Atraumatic, PERRLA, EOMI, Mucous membr. moist/pink Neck: Supple Lungs: Clear to auscultation, Normal air movement Cardiovascular: Regular rate, Normal S1, Normal S2, No murmurs, Gallops, Rubs Abdomen: Normal bowel sounds, Soft, No tenderness Neuro: Cranial nerves 3-12 NL Psych/Mental Status: Mental status NL Medications Current Medications Medications Dose Ordered Sig/Naye Route Start Time Stop Time Status Last Admin Dose Admin Vancomycin HCl 0 ml @ 0 mls/hr UD IV 12/13/24 15:00 Pantoprazole Sodium 40 mg DAILY IV 12/14/24 10:00 12/18/24 09:51 40 MG Ondansetron HCl 4 mg Q4HP PRN IV 12/13/24 15:00 12/18/24 09:52 4 MG Morphine Sulfate 2 mg Q4HPRN PRN IV 12/13/24 15:00 UNV Morphine Sulfate 2 mg Q4HPRN PRN IV 12/13/24 15:00 Piperacillin Sod/ Tazobactam Sod 100 ml @ 25 mls/hr Q8H IV 12/14/24 02:45 12/18/24 09:51 25 MLS/HR Hydromorphone HCl 1 mg Q4HPRN PRN IV 12/14/24 12:00 12/18/24 09:53 1 MG Docusate Sodium 100 mg BID PO 12/14/24 22:00 12/18/24 09:51 100 MG Dextrose/Sodium Chloride 1,000 ml @ 50 mls/hr Q20H IV 12/15/24 22:30 12/17/24 13:48 50 MLS/HR Amino Acids 0 ml @ 0 mls/hr PER PHARMACY IV 12/16/24 11:00 Diagnostic Test (Pha) 1 strip Q6HR 12/16/24 18:00 12/18/24 05:13 1 STRIP Insulin Human Regular FOLLOW SLIDING SCALE Q6HR SC 12/16/24 18:00 12/17/24 12:34 4 UNITS Dextrose 50 ml UD IV 12/16/24 12:15 Amino Acids/ Electrolytes/ Dextrose 1,000 ml @ 41 mls/hr DAILY@2200 IV 12/16/24 22:00 12/17/24 21:49 41 MLS/HR Albuterol 2.5 mg Q6HPRN PRN NEB 12/16/24 21:00 12/17/24 19:26 2.5 MG Vancomycin HCl 250 ml @ 250 mls/hr Q8H IV 12/17/24 15:00 12/18/24 06:48 250 MLS/HR Laboratory Results Laboratory Tests 12/18/24 06:10 Chemistry Test 12/18/24 06:10 Albumin 3.3 g/dL (3.2-4.8) Calcium Level 8.4 mg/dL (8.7-10.4) L Magnesium Level 2.2 mg/dL (1.6-2.6) Phosphorus Level 4.2 mg/dL (2.4-5.1) Urinalysis Test 12/13/24 10:57 Urine Color [place] (Yellow) H Urine Clarity Turbid (Clear) H Urine pH 6.0 (5.0-9.0) Urine Specific [place] 1.032 (1.001-1.035) Urine Protein 1+ (Negative) H Urine Ketones 1+ (Negative) H Urine Blood 1+ /uL (Negative) H Urine Nitrite Negative (Negative) Urine Bilirubin 1+ (Negative) H Urine Urobilinogen 8 mg/dL (Negative) H Urine Leukocyte Esterase 3+ /uL (Negative) Urine RBC 14 /hpf (0 - 4) Urine Microscopic WBC 65 /HPF (0-5) H Urine Squamous Epithelial Cells Mod /hpf (<5) Urine Bacteria None seen /hpf (None Seen) Urine Mucus Few (None Seen) Urine Yeast (Budding) Occasional /hpf (None Urine Glucose Normal mg/dL (Normal) Urine Test Negative (Negative) Microbiology Microbiology Date/Time Source Procedure Growth Status 12/16/24 02:00 Urine - Midstream Clean Catch Urine Culture - Preliminary Resulted Labs and/or images reviewed: Labs reviewed by me Assessment/Plan Assessment/Plan Acute diverticulitis Questionable diverticular abscess Leukocytosis Continuing current management. Surgical consultation appreciate Radiology consult Continuing with IV antibiotic Zosyn/vancomycin We will let her bowel rest and continuing the patient on NPO Pain management : I will discontinuing morphine and start the patient on Dilaudid 1 mg IV q.4 PRN for pain Continuing with IV fluid Repeat CT abdomen and pelvis: Prominent inflammatory stranding in the lower abdomen and pelvis with ill-defined fluid, likely infectious or inflammatory in nature, extending adjacent to the small bowel loops, uterus, adnexa, and bladder. Differential considerations could include inflammatory bowel disease, pelvic inflammatory disease, or other infectious or inflammatory etiology. Correlate with clinical findings. Limited evaluation for abscess on noncontrast enhanced CT. Abscess not excluded. Nonspecific nondilated fluid-filled small bowel loops with inflammatory stranding adjacent to bowel loops in the lower abdomen and pelvis. Findings may be due to enteritis in the appropriate clinical setting. Appendix is normal in diameter. The appendix extends adjacent to the inflammatory changes in the lower abdomen and pelvis, although the inflammatory changes are not centered around the appendix to suggest acute appendicitis.. Mild circumferential thickening of the bladder wall. Correlate clinically to exclude cystitis. GI consult appreciate. will start clear liquid diet. Plan discussed with: Patient Date of Service: Dec 18, 2024 Billing Provider: LOAN MCCONNELL MD Common Visit Codes: [id number] INP/OBS CARE(HIGH) LOAN MCCONNELL MD Dec 18, 2024 10:38
--- NOTE | 2024-12-18 15:25 | DVHPN2 ---
Progress Note - Surgical Date Seen: Dec 18, 2024 Post op day Post op day: 0 Subjective Patient reports: Feels better (Patient feeling much better, very minimal abdominal pain, feeling hungry, no BM, passing gas.) Review of Systems: Deferred Objective Vital signs Vital Sign Date Time Temp Pulse Resp B/P (MAP) Pulse Ox O2 Delivery O2 Flow Rate FiO2 12/18/24 15:07 78 16 135/91 12/18/24 13:00 98.8 95 98.8 12/18/24 09:10 Room Air 12/18/24 09:10 0 21 Total Intake and Output 12/17/24 12/17/24 12/18/24 15:00 23:00 07:00 Intake Total 1250 ml 100 ml Balance 1250 ml 100 ml Medications Current Medications Medications Dose Ordered Sig/Naye Route Start Time Stop Time Status Last Admin Dose Admin Vancomycin HCl 0 ml @ 0 mls/hr UD IV 12/13/24 15:00 Pantoprazole Sodium 40 mg DAILY IV 12/14/24 10:00 12/18/24 09:51 40 MG Ondansetron HCl 4 mg Q4HP PRN IV 12/13/24 15:00 12/18/24 15:07 4 MG Morphine Sulfate 2 mg Q4HPRN PRN IV 12/13/24 15:00 UNV Morphine Sulfate 2 mg Q4HPRN PRN IV 12/13/24 15:00 Piperacillin Sod/ Tazobactam Sod 100 ml @ 25 mls/hr Q8H IV 12/14/24 02:45 12/18/24 09:51 25 MLS/HR Hydromorphone HCl 1 mg Q4HPRN PRN IV 12/14/24 12:00 12/18/24 15:07 1 MG Docusate Sodium 100 mg BID PO 12/14/24 22:00 12/18/24 09:51 100 MG Dextrose/Sodium Chloride 1,000 ml @ 50 mls/hr Q20H IV 12/15/24 22:30 12/17/24 13:48 50 MLS/HR Amino Acids 0 ml @ 0 mls/hr PER PHARMACY IV 12/16/24 11:00 Diagnostic Test (Pha) 1 strip Q6HR 12/16/24 18:00 12/18/24 11:42 1 STRIP Insulin Human Regular FOLLOW SLIDING SCALE Q6HR SC 12/16/24 18:00 12/17/24 12:34 4 UNITS Dextrose 50 ml UD IV 12/16/24 12:15 Amino Acids/ Electrolytes/ Dextrose 1,000 ml @ 41 mls/hr DAILY@2200 IV 12/16/24 22:00 12/17/24 21:49 41 MLS/HR Albuterol 2.5 mg Q6HPRN PRN NEB 12/16/24 21:00 12/17/24 19:26 2.5 MG Vancomycin HCl 250 ml @ 250 mls/hr Q8H IV 12/17/24 15:00 12/18/24 15:07 250 MLS/HR Laboratory Laboratory Tests 12/18/24 06:10 Test 12/18/24 06:10 Range/Units Serum Glucose 107 H 74-106 mg/dL Microbiology Date/Time Source Procedure Growth Status 12/16/24 02:00 Urine - Midstream Clean Catch Urine Culture - Final Complete Examination: GENERAL:Normal, ABDOMEN:Abnormal (Nondistended, soft, depressible, mild suprapubic tenderness, no rebound, no guarding) Labs and/or images reviewed: Labs reviewed by me (Leukocytosis down trending 20 from 22) Problem List/Assessment/Plan Assessment and Plan is a 29-year-old female who presents with the acute diverticulitis, [place] [address] was reviewed and shows sigmoid colon diverticuli with surrounding inflammation and phlegmon formation. No free air noted on CT. Patient also presented with leukocytosis of 23. Patient will benefit from bowel rest and IV antibiotics. Interval: Patient continues to improve, passing more flatus now, no BM. Patient is also feeling hungry. We will advance patient to clear liquid diet and assess toleration. 1. Okay for clear liquid diet per surgical standpoint 2. Continue with IV antibiotics 3. Pain control 4. Nausea control 5. IV fluid hydration 6. Out of bed and ambulate 7. Colace b.i.d. (stool softener) 8. No GI laxatives or cathartics My Orders My Orders Orders - SLOANE MAN MD Procedure Category Date Status Time Clear Liq Diet DIET 12/18/24 Transmitted Dinner Complete Blood Count LAB 12/19/24 Verified 04:00 Basic Metabolic Panel LAB 12/19/24 Verified 04:00 Plan discussed with Plan discussed with: Patient Visit Coding Surgery Date of Service if different f: Dec 18, 2024 Billing Provider: SLOANE MAN MD Surgery Visit Codes: [id number] INP/OBS CARE(HIGH) SLOANE MAN MD Dec 18, 2024 15:25
--- NOTE | 2024-12-18 20:52 | DVHPN2 ---
Progress Note - Dictate Date Seen: Dec 18, 2024 Medical Necessity Reason Pt with a Central, PICC or Fol: No Subjective Patient feeling much better, very minimal abdominal pain, feeling hungry, no BM, passing gas.) Patient is now afebrile Leukocytosis improving slowly vital signs Vital Sign Date Time Temp Pulse Resp B/P (MAP) Pulse Ox O2 Delivery O2 Flow Rate FiO2 12/18/24 20:42 99.2 94 19 137/89 (105) 98 99.2 12/18/24 09:10 Room Air 12/18/24 09:10 0 21 Total Intake and Output 12/17/24 12/17/24 12/18/24 15:00 23:00 07:00 Intake Total 1250 ml 100 ml Balance 1250 ml 100 ml medications Current Medications Medications Dose Ordered Sig/Naye Route Start Time Stop Time Status Last Admin Dose Admin Vancomycin HCl 0 ml @ 0 mls/hr UD IV 12/13/24 15:00 Pantoprazole Sodium 40 mg DAILY IV 12/14/24 10:00 12/18/24 09:51 40 MG Ondansetron HCl 4 mg Q4HP PRN IV 12/13/24 15:00 12/18/24 20:40 4 MG Morphine Sulfate 2 mg Q4HPRN PRN IV 12/13/24 15:00 UNV Morphine Sulfate 2 mg Q4HPRN PRN IV 12/13/24 15:00 Piperacillin Sod/ Tazobactam Sod 100 ml @ 25 mls/hr Q8H IV 12/14/24 02:45 12/18/24 17:39 25 MLS/HR Hydromorphone HCl 1 mg Q4HPRN PRN IV 12/14/24 12:00 12/18/24 20:42 1 MG Docusate Sodium 100 mg BID PO 12/14/24 22:00 12/18/24 09:51 100 MG Dextrose/Sodium Chloride 1,000 ml @ 50 mls/hr Q20H IV 12/15/24 22:30 12/17/24 13:48 50 MLS/HR Amino Acids 0 ml @ 0 mls/hr PER PHARMACY IV 12/16/24 11:00 Diagnostic Test (Pha) 1 strip Q6HR 12/16/24 18:00 12/18/24 16:54 1 STRIP Insulin Human Regular FOLLOW SLIDING SCALE Q6HR SC 12/16/24 18:00 12/17/24 12:34 4 UNITS Dextrose 50 ml UD IV 12/16/24 12:15 Amino Acids/ Electrolytes/ Dextrose 1,000 ml @ 41 mls/hr DAILY@2200 IV 12/16/24 22:00 12/17/24 21:49 41 MLS/HR Albuterol 2.5 mg Q6HPRN PRN NEB 12/16/24 21:00 12/17/24 19:26 2.5 MG objective General Appearance: Alert, Cooperative, mild distress HEENT: Atraumatic, PERRLA, EOMI, Mucous membr. moist/pink Neck: Supple Lungs: Clear to auscultation, Normal air movement Cardiovascular: Regular rate, Normal S1, Normal S2, No murmurs, Gallops, Rubs Abdomen: Normal bowel sounds, Soft, No tenderness Neuro: Cranial nerves 3-12 NL Psych/Mental Status: Mental status NL laboratory and microbiology Laboratory Tests 12/18/24 06:10 Test 12/18/24 06:10 Range/Units Serum Glucose 107 H 74-106 mg/dL Problems(with codes): (1) Abnormal finding on GI tract imaging (2) Leukocytosis (3) Acute diverticulitis (4) Acute UTI (urinary tract infection) Prognosis PLAN Clear liquid diet started by surgical consult Continue IV antibiotics, IV fluid hydration Pain control IV PPI and IV Zofran Out of bed to ambulate Stool softeners Possible repeat imaging pelvic CT with contrast or MRI with contrast later this week to re-evaluate progression of pelvic inflammation Dietary Evaluation Review Comments: Advance to TPN per pharmacy providing 70 gram protein 1500 kcal. Expected Outcomes/Goals: meet pt's protein and energy needs. avoid wt loss Plan discussed with: Patient CAESAR MARTIN MD Dec 18, 2024 20:52
[2024-12-19] VITALS (9 sets, daily range): BP systolic 126–148; BP diastolic 79–88; PULSE 69–89; RESP 18–20; TEMP 98.4–100.1; O2SAT 96–99
[2024-12-19 08:18] LABS: Hematocrit 33.1 % (36.0-46.0); Hemoglobin 11.0 g/dL (12.2-16.2); Mean Corpuscular Hemoglobin 26.9 pg (28.0-32.0); Mean Corpuscular Volume 81.0 fL (80.0-100.0); Nucleated Red Blood Cells % 0.0 %
[2024-12-19 08:25] LABS: Chloride 104.0 mmol/L (98-107)
[2024-12-19 08:26] LABS: Anion Gap 15.0 (5-15); Carbon Dioxide 26.0 mmol/L (20-31)
[2024-12-19 08:32] LABS: Albumin 3.2 g/dL (3.2-4.8); BUN/Creatinine Ratio 7.9 (10.0-20.0); Blood Urea Nitrogen 9.0 mg/dL (9-23); Calcium 7.6 mg/dL (8.7-10.4); Glucose 98.0 mg/dL (74-106); Magnesium 1.8 mg/dL (1.6-2.6); Potassium 3.2 mmol/L (3.5-5.1); Sodium 145.0 mmol/L (136-145)
--- NOTE | 2024-12-19 10:37 | DVHPN2 ---
Progress Note - Surgical Date Seen: Dec 19, 2024 Post op day Post op day: 0 Subjective Patient reports: Feels better (Patient continues to feel better, tolerated clear liquid diet yesterday, had a small bowel movements soft. Very minimal suprapubic pain complaint) Review of Systems: Deferred Objective Vital signs Vital Sign Date Time Temp Pulse Resp B/P (MAP) Pulse Ox O2 Delivery O2 Flow Rate FiO2 12/19/24 09:18 75 20 126/82 12/19/24 04:50 99.3 97 99.3 12/18/24 20:00 Room Air* 0 21 Total Intake and Output 12/18/24 12/18/24 12/19/24 15:00 23:00 07:00 Intake Total 350 ml 100 ml 460 ml Balance 350 ml 100 ml 460 ml Medications Current Medications Medications Dose Ordered Sig/Naye Route Start Time Stop Time Status Last Admin Dose Admin Vancomycin HCl 0 ml @ 0 mls/hr UD IV 12/13/24 15:00 Pantoprazole Sodium 40 mg DAILY IV 12/14/24 10:00 12/19/24 09:17 40 MG Ondansetron HCl 4 mg Q4HP PRN IV 12/13/24 15:00 12/19/24 09:17 4 MG Morphine Sulfate 2 mg Q4HPRN PRN IV 12/13/24 15:00 UNV Morphine Sulfate 2 mg Q4HPRN PRN IV 12/13/24 15:00 Piperacillin Sod/ Tazobactam Sod 100 ml @ 25 mls/hr Q8H IV 12/14/24 02:45 12/19/24 02:45 25 MLS/HR Hydromorphone HCl 1 mg Q4HPRN PRN IV 12/14/24 12:00 12/19/24 09:18 1 MG Docusate Sodium 100 mg BID PO 12/14/24 22:00 12/19/24 09:17 100 MG Dextrose/Sodium Chloride 1,000 ml @ 50 mls/hr Q20H IV 12/15/24 22:30 12/17/24 13:48 50 MLS/HR Amino Acids 0 ml @ 0 mls/hr PER PHARMACY IV 12/16/24 11:00 Diagnostic Test (Pha) 1 strip Q6HR 12/16/24 18:00 12/19/24 05:06 1 STRIP Insulin Human Regular FOLLOW SLIDING SCALE Q6HR SC 12/16/24 18:00 12/17/24 12:34 4 UNITS Dextrose 50 ml UD IV 12/16/24 12:15 Amino Acids/ Electrolytes/ Dextrose 1,000 ml @ 41 mls/hr DAILY@2200 IV 12/16/24 22:00 12/18/24 22:28 41 MLS/HR Albuterol 2.5 mg Q6HPRN PRN NEB 12/16/24 21:00 12/17/24 19:26 2.5 MG Vancomycin HCl 250 ml @ 250 mls/hr Q12H IV 12/19/24 11:00 UNV Laboratory Laboratory Tests 12/19/24 07:34 Test 12/19/24 07:34 Range/Units Serum Glucose 98 74-106 mg/dL Microbiology Date/Time Source Procedure Growth Status 12/16/24 02:00 Urine - Midstream Clean Catch Urine Culture - Final Complete Examination: GENERAL:Normal, ABDOMEN:Abnormal (Nondistended, soft, depressible, mild suprapubic tenderness, no rebound, no guarding) Labs and/or images reviewed: Labs reviewed by me (Leukocytosis slowly downtrending 19 from 20) Problem List/Assessment/Plan Assessment and Plan is a 29-year-old female who presents with the acute diverticulitis, [place] [address] was reviewed and shows sigmoid colon diverticuli with surrounding inflammation and phlegmon formation. No free air noted on CT. Patient also presented with leukocytosis of 23. Patient will benefit from bowel rest and IV antibiotics. Interval: Patient tolerated clear liquid diet yesterday, had a small soft bowel movement. Feeling hungrier, will advanced to soft diet. 1. Soft diet 2. Continue with IV antibiotics 3. Pain control 4. Nausea control 5. IV fluid hydration 6. Out of bed and ambulate 7. Colace b.i.d. (stool softener) 8. No GI laxatives or cathartics My Orders My Orders Orders - SLOANE MAN MD Procedure Category Date Status Time Complete Blood Count LAB 12/20/24 Verified 04:00 Basic Metabolic Panel LAB 12/20/24 Verified 04:00 Soft Diet DIET 12/19/24 Transmitted Breakfast Plan discussed with Plan discussed with: Patient Visit Coding Surgery Date of Service if different f: Dec 19, 2024 Billing Provider: SLOANE MAN MD Surgery Visit Codes: [id number] INP/OBS CARE(HIGH) SLOANE MAN MD Dec 19, 2024 10:37
--- NOTE | 2024-12-19 11:31 | DVHPN2 ---
Subjective The patient is seen and examined at bedside. Complain of severe abdominal pain. WBC trending down but still high 20.0. The patient said she want clear liquid diet today. Surgeon want to start patient since yesterday but patient did not want it. Reviewed: Care Plan, H&P, Labs, Medications, Previous Orders, Radiology Changes from previous H/P or p: No Changes Objective Vitals Vital Signs Date Time Temp Pulse Resp B/P (MAP) Pulse Ox O2 Delivery O2 Flow Rate FiO2 12/19/24 09:30 100.1 75 20 126/82 (97) 96 100.1 12/18/24 20:00 Room Air* 0 21 Intake/Output Intake and Output 12/19/24 07:00 Intake Total 910 ml Balance 910 ml Intake Oral 360 ml IV Total 550 ml # Voids 10 # Bowel Movements 1 General Appearance: Alert, Cooperative, moderate distress HEENT: Atraumatic, PERRLA, EOMI, Mucous membr. moist/pink Neck: Supple Lungs: Clear to auscultation, Normal air movement Cardiovascular: Regular rate, Normal S1, Normal S2, No murmurs, Gallops, Rubs Abdomen: Normal bowel sounds, Soft, No tenderness Neuro: Cranial nerves 3-12 NL Psych/Mental Status: Mental status NL Medications Current Medications Medications Dose Ordered Sig/Naye Route Start Time Stop Time Status Last Admin Dose Admin Vancomycin HCl 0 ml @ 0 mls/hr UD IV 12/13/24 15:00 Pantoprazole Sodium 40 mg DAILY IV 12/14/24 10:00 12/19/24 09:17 40 MG Ondansetron HCl 4 mg Q4HP PRN IV 12/13/24 15:00 12/19/24 09:17 4 MG Morphine Sulfate 2 mg Q4HPRN PRN IV 12/13/24 15:00 UNV Morphine Sulfate 2 mg Q4HPRN PRN IV 12/13/24 15:00 Piperacillin Sod/ Tazobactam Sod 100 ml @ 25 mls/hr Q8H IV 12/14/24 02:45 12/19/24 02:45 25 MLS/HR Hydromorphone HCl 1 mg Q4HPRN PRN IV 12/14/24 12:00 12/19/24 09:18 1 MG Docusate Sodium 100 mg BID PO 12/14/24 22:00 12/19/24 09:17 100 MG Dextrose/Sodium Chloride 1,000 ml @ 50 mls/hr Q20H IV 12/15/24 22:30 12/17/24 13:48 50 MLS/HR Amino Acids 0 ml @ 0 mls/hr PER PHARMACY IV 12/16/24 11:00 Diagnostic Test (Pha) 1 strip Q6HR 12/16/24 18:00 12/19/24 05:06 1 STRIP Insulin Human Regular FOLLOW SLIDING SCALE Q6HR SC 12/16/24 18:00 12/17/24 12:34 4 UNITS Dextrose 50 ml UD IV 12/16/24 12:15 Amino Acids/ Electrolytes/ Dextrose 1,000 ml @ 41 mls/hr DAILY@2200 IV 12/16/24 22:00 12/18/24 22:28 41 MLS/HR Albuterol 2.5 mg Q6HPRN PRN NEB 12/16/24 21:00 12/17/24 19:26 2.5 MG Vancomycin HCl 250 ml @ 250 mls/hr Q12H IV 12/19/24 11:00 Laboratory Results Laboratory Tests 12/19/24 07:34 Chemistry Test 12/19/24 07:34 Albumin 3.2 g/dL (3.2-4.8) Calcium Level 7.6 mg/dL (8.7-10.4) L Magnesium Level 1.8 mg/dL (1.6-2.6) Phosphorus Level 3.1 mg/dL (2.4-5.1) Urinalysis Test 12/13/24 10:57 Urine Color [place] (Yellow) H Urine Clarity Turbid (Clear) H Urine pH 6.0 (5.0-9.0) Urine Specific [place] 1.032 (1.001-1.035) Urine Protein 1+ (Negative) H Urine Ketones 1+ (Negative) H Urine Blood 1+ /uL (Negative) H Urine Nitrite Negative (Negative) Urine Bilirubin 1+ (Negative) H Urine Urobilinogen 8 mg/dL (Negative) H Urine Leukocyte Esterase 3+ /uL (Negative) Urine RBC 14 /hpf (0 - 4) Urine Microscopic WBC 65 /HPF (0-5) H Urine Squamous Epithelial Cells Mod /hpf (<5) Urine Bacteria None seen /hpf (None Seen) Urine Mucus Few (None Seen) Urine Yeast (Budding) Occasional /hpf (None Urine Glucose Normal mg/dL (Normal) Urine Test Negative (Negative) Microbiology Microbiology Date/Time Source Procedure Growth Status 12/16/24 02:00 Urine - Midstream Clean Catch Urine Culture - Final Complete Assessment/Plan Assessment/Plan Acute diverticulitis Questionable diverticular abscess Leukocytosis Continuing current management. Surgical consultation appreciate Radiology consult Continuing with IV antibiotic Zosyn/vancomycin We will let her bowel rest and continuing the patient on NPO Pain management : I will discontinuing morphine and start the patient on Dilaudid 1 mg IV q.4 PRN for pain Continuing with IV fluid Repeat CT abdomen and pelvis: Prominent inflammatory stranding in the lower abdomen and pelvis with ill-defined fluid, likely infectious or inflammatory in nature, extending adjacent to the small bowel loops, uterus, adnexa, and bladder. Differential considerations could include inflammatory bowel disease, pelvic inflammatory disease, or other infectious or inflammatory etiology. Correlate with clinical findings. Limited evaluation for abscess on noncontrast enhanced CT. Abscess not excluded. Nonspecific nondilated fluid-filled small bowel loops with inflammatory stranding adjacent to bowel loops in the lower abdomen and pelvis. Findings may be due to enteritis in the appropriate clinical setting. Appendix is normal in diameter. The appendix extends adjacent to the inflammatory changes in the lower abdomen and pelvis, although the inflammatory changes are not centered around the appendix to suggest acute appendicitis.. Mild circumferential thickening of the bladder wall. Correlate clinically to exclude cystitis. GI consult appreciate. continue clear liquid diet. Will order CT abdomen and pelvis with oral and IV contrast because patient still have severe abdominal pain despite she tolerate clear liquid diet. This medical document was created using an electronic medical record system with [employer] direct computerized dictation system. Although this document has been carefully reviewed, there may still be some phonetic and typographical errors. These areas are purely typographical due to imperfections of the software programs, and do not reflect any compromise in the patient's medical care. Plan discussed with: Patient My Orders Orders - LOAN MCCONNELL MD Procedure Category Date Status Time Insert Midline ORDERS 12/19/24 Transmitted 08:35 Date of Service: Dec 19, 2024 Billing Provider: LOAN MCCONNELL MD Common Visit Codes: [id number] INP/OBS CARE(HIGH) LOAN MCCONNELL MD Dec 19, 2024 11:31
[2024-12-19] MEDS: VANCOMYCIN 1GM/250ML KIT 250 ML IV SCH (11:48)
[2024-12-19] MEDS: POTASSIUM CHL 20MEQ/100ML 100 ML IV ONE (14:56)
[2024-12-19] MEDS ORDERED: OMNIPAQUE 12mg/ml 500ml ORAL SOLUTION PO ONE (16:24)
[2024-12-19] MEDS ORDERED: IOHEXOL 300 MG/ML 100ML BOTTLE IJ ONE (18:30)
--- NOTE | 2024-12-19 19:44 | DVH ---
COMPUTERIZED TOMOGRAPHY ABDOMEN/PELVIS WITH INTRAVENOUS CONTRAST CLINICAL HISTORY: follow up abcess/diverticulitis COMPARISON: CT CT AB PEL WO CON-NO ORAL OR IV on DOS: 12/15/24, CT CT AB PEL WO CON-NO ORAL OR IV on DOS: 12/13/24, US PELVIC on DOS: 12/13/24, US TRANSVAGINAL US NON OB on DOS: 12/13/24 TECHNIQUE: After the administration of intravenous contrast, axial CT images of the abdomen and pelvi s were obtained. 2-D coronal and sagittal reformatted images were provided. Radiation optimization: A ll CT scans at this facility use at least one of these dose optimization techniques: Automated exposu re control mA and/or kV adjustment per patient size (includes targeted exams where dose is matched to clinical indication) or iterative reconstruction. CONTRAST ADMINISTERED: 100 mL omnipaque 300, intravenously. 800 mL dilute omnipaque by mouth. RADIATION DOSE: CTDI: 27.88 mGy DLP: 1546.73 mGy-cm FINDINGS: The visualized lung bases are clear. There is no pleural effusion. There is no pericardial effusion. The spleen is not enlarged. The liver is enlarged at approximately 20.8 cm in length. No calcified ga llstone is identified. The pancreas is within normal limits. The adrenal glands are normal. The kidne ys are similar in size. Evaluation of the abdominal and pelvic contents is degraded by patient body habitus and streak artifact from the patient's arms. There is no hydronephrosis of either kidney. The re is no abdominal aortic aneurysm. There are several subcentimeter lymph nodes in the retroperitoneu m without pathologic enlargement, likely reactive. No pathologic lymphadenopathy is identified by siz e criteria. There is enteric contrast in the stomach and throughout the majority of the small bowel. At the time of scanning, enteric contrast is not present in the colon. There is inflammatory strandin g throughout the pelvis and surrounding the uterus and ovaries. There is a small to moderate amount of free fluid in the dependent pelvis. There is persistent diffuse thickening of the midportion of th e sigmoid colon. There is phlegmon anterior to this inflamed portion of sigmoid colon. There are 2 s mall foci of air within the phlegmon consistent with locally contained perforation. The appendix is n ormal. There is thickening of the bladder dome. No definite organized abscess is identified. No acute osseous abnormality is identified. IMPRESSION: Inflamed section of sigmoid colon. Phlegmon anterior to the inflamed sigmoid colon contains small foc i of air consistent with locally contained perforation. No definite organized abscess is identified. Small to moderate free fluid in the pelvis. Normal appendix Hepatomegaly Perforated viscus Critical Result: Free air Findings discussed with the nurse caring for the patient on day shift, Kavitha, 12/19/2024 07:28 PM, an d acknowledged receipt and understanding of the findings. #CRITICAL# Electronically drafted by Hieu Meléndez at 12/19/2024 9:29 PM [employer]
[2024-12-19] MEDS: PIPERACILLIN-TAZOB 3.375GM 100 ML IV SCH (21:49)
--- NOTE | 2024-12-19 22:00 | DVHPN2 ---
Progress Note - Dictate Date Seen: Dec 19, 2024 Medical Necessity Reason Pt with a Central, PICC or Fol: No Subjective Patient feeling much better, minimal abdominal pain, feeling hungry,, passing gas.) Patient is now afebrile; complaints of left arm pain from IV infiltration Leukocytosis improving slowly vital signs Vital Sign Date Time Temp Pulse Resp B/P (MAP) Pulse Ox O2 Delivery O2 Flow Rate FiO2 12/19/24 19:32 92 18 137/82 12/19/24 17:11 99.2 99 99.2 12/19/24 09:39 Room Air 0.0 12/19/24 09:39 21 Total Intake and Output 12/18/24 12/18/24 12/19/24 15:00 23:00 07:00 Intake Total 350 ml 100 ml 460 ml Balance 350 ml 100 ml 460 ml medications Current Medications Medications Dose Ordered Sig/Naye Route Start Time Stop Time Status Last Admin Dose Admin Vancomycin HCl 0 ml @ 0 mls/hr UD IV 12/13/24 15:00 Pantoprazole Sodium 40 mg DAILY IV 12/14/24 10:00 12/19/24 09:17 40 MG Ondansetron HCl 4 mg Q4HP PRN IV 12/13/24 15:00 12/19/24 18:31 4 MG Morphine Sulfate 2 mg Q4HPRN PRN IV 12/13/24 15:00 UNV Morphine Sulfate 2 mg Q4HPRN PRN IV 12/13/24 15:00 Hydromorphone HCl 1 mg Q4HPRN PRN IV 12/14/24 12:00 12/19/24 18:31 1 MG Docusate Sodium 100 mg BID PO 12/14/24 22:00 12/19/24 21:48 100 MG Dextrose/Sodium Chloride 1,000 ml @ 50 mls/hr Q20H IV 12/15/24 22:30 12/17/24 13:48 50 MLS/HR Amino Acids 0 ml @ 0 mls/hr PER PHARMACY IV 12/16/24 11:00 Diagnostic Test (Pha) 1 strip Q6HR 12/16/24 18:00 12/19/24 17:52 1 STRIP Insulin Human Regular FOLLOW SLIDING SCALE Q6HR SC 12/16/24 18:00 12/17/24 12:34 4 UNITS Dextrose 50 ml UD IV 12/16/24 12:15 Amino Acids/ Electrolytes/ Dextrose 1,000 ml @ 41 mls/hr DAILY@2200 IV 12/16/24 22:00 12/19/24 21:50 41 MLS/HR Albuterol 2.5 mg Q6HPRN PRN NEB 12/16/24 21:00 12/17/24 19:26 2.5 MG Vancomycin HCl 250 ml @ 250 mls/hr Q12H IV 12/19/24 11:00 12/19/24 11:48 250 MLS/HR Piperacillin Sod/ Tazobactam Sod 100 ml @ 25 mls/hr Q8H IV 12/19/24 22:00 12/19/24 21:49 25 MLS/HR objective General Appearance: Alert, Cooperative, mild distress HEENT: Atraumatic, PERRLA, EOMI, Mucous membr. moist/pink Neck: Supple Lungs: Clear to auscultation, Normal air movement Cardiovascular: Regular rate, Normal S1, Normal S2, No murmurs, Gallops, Rubs Abdomen: Normal bowel sounds, Soft, No tenderness Neuro: Cranial nerves 3-12 NL Psych/Mental Status: Mental status NL laboratory and microbiology Laboratory Tests 12/19/24 07:34 Test 12/19/24 07:34 Range/Units Serum Glucose 98 74-106 mg/dL Problems(with codes): (1) Abnormal finding on GI tract imaging (2) Leukocytosis (3) Acute diverticulitis (4) Acute UTI (urinary tract infection) Prognosis Plan Patient's diet was advance to soft mechanical by surgical consult Continue IV antibiotics, continue supportive care Consider repeat imaging later this week of the pelvic area with MRI or pelvic CT Dietary Evaluation Review Comments: Advance to TPN per pharmacy providing 70 gram protein 1500 kcal. Expected Outcomes/Goals: meet pt's protein and energy needs. avoid wt loss Plan discussed with: Patient CAESAR MARTIN MD Dec 19, 2024 22:00
[2024-12-20] VITALS (8 sets, daily range): BP systolic 124–140; BP diastolic 74–97; PULSE 75–84; RESP 18–20; TEMP 97.9–98.6; O2SAT 94–98
[2024-12-20 06:23] LABS: Nucleated Red Blood Cells % 0.0 %
[2024-12-20 06:26] LABS: Hematocrit 34.1 % (36.0-46.0); Hemoglobin 11.4 g/dL (12.2-16.2); Mean Corpuscular Hemoglobin 27.1 pg (28.0-32.0); Mean Corpuscular Volume 81.3 fL (80.0-100.0)
[2024-12-20 06:38] LABS: Alanine Aminotransferase 10 U/L (7-40); Albumin 3.5 g/dL (3.2-4.8); Alkaline Phosphatase 95 U/L (46-116); Anion Gap 10 (5-15); BUN/Creatinine Ratio 7.3 (10.0-20.0); Blood Urea Nitrogen 8 mg/dL (9-23); Calcium 8.4 mg/dL (8.7-10.4); Carbon Dioxide 26 mmol/L (20-31); Chloride 101 mmol/L (98-107); Glucose 106 mg/dL (74-106); Magnesium 2.1 mg/dL (1.6-2.6); Potassium 3.7 mmol/L (3.5-5.1); Sodium 137 mmol/L (136-145); Total Protein 6.8 g/dL (5.7-8.2)
[2024-12-20 06:39] LABS: Bilirubin, Total 1.6 mg/dL (0.2-1.0)
--- NOTE | 2024-12-20 11:00 | DVHPN2 ---
Subjective The patient is seen and examined at bedside. Complain of severe abdominal pain. WBC trending down. Reviewed: Care Plan, H&P, Labs, Medications, Previous Orders, Radiology Changes from previous H/P or p: No Changes Objective Vitals Vital Signs Date Time Temp Pulse Resp B/P (MAP) Pulse Ox O2 Delivery O2 Flow Rate FiO2 12/20/24 10:48 75 18 114/82 12/20/24 10:05 95 Room Air 0.0 12/20/24 10:05 21 12/20/24 08:32 98.4 98.4 Intake/Output Intake and Output 12/20/24 07:00 Intake Total 250 ml Balance 250 ml Intake Oral 0 ml IV Total 250 ml # Voids 14 # Bowel Movements 3 General Appearance: Alert, Cooperative, moderate distress HEENT: Atraumatic, PERRLA, EOMI, Mucous membr. moist/pink Neck: Supple Lungs: Clear to auscultation, Normal air movement Cardiovascular: Regular rate, Normal S1, Normal S2, No murmurs, Gallops, Rubs Abdomen: Normal bowel sounds, Soft, No tenderness Neuro: Cranial nerves 3-12 NL Psych/Mental Status: Mental status NL Medications Current Medications Medications Dose Ordered Sig/Naye Route Start Time Stop Time Status Last Admin Dose Admin Vancomycin HCl 0 ml @ 0 mls/hr UD IV 12/13/24 15:00 Pantoprazole Sodium 40 mg DAILY IV 12/14/24 10:00 12/20/24 08:57 40 MG Ondansetron HCl 4 mg Q4HP PRN IV 12/13/24 15:00 12/20/24 08:57 4 MG Morphine Sulfate 2 mg Q4HPRN PRN IV 12/13/24 15:00 UNV Morphine Sulfate 2 mg Q4HPRN PRN IV 12/13/24 15:00 Hydromorphone HCl 1 mg Q4HPRN PRN IV 12/14/24 12:00 12/20/24 08:58 1 MG Docusate Sodium 100 mg BID PO 12/14/24 22:00 12/19/24 21:48 100 MG Dextrose/Sodium Chloride 1,000 ml @ 50 mls/hr Q20H IV 12/15/24 22:30 12/20/24 02:46 50 MLS/HR Amino Acids 0 ml @ 0 mls/hr PER PHARMACY IV 12/16/24 11:00 Diagnostic Test (Pha) 1 strip Q6HR 12/16/24 18:00 12/20/24 05:45 1 STRIP Insulin Human Regular FOLLOW SLIDING SCALE Q6HR SC 12/16/24 18:00 12/17/24 12:34 4 UNITS Dextrose 50 ml UD IV 12/16/24 12:15 Amino Acids/ Electrolytes/ Dextrose 1,000 ml @ 41 mls/hr DAILY@2200 IV 12/16/24 22:00 12/19/24 21:50 41 MLS/HR Albuterol 2.5 mg Q6HPRN PRN NEB 12/16/24 21:00 12/17/24 19:26 2.5 MG Vancomycin HCl 250 ml @ 250 mls/hr Q12H IV 12/19/24 11:00 12/20/24 10:47 250 MLS/HR Piperacillin Sod/ Tazobactam Sod 100 ml @ 25 mls/hr Q8H IV 12/19/24 22:00 12/20/24 05:37 25 MLS/HR Laboratory Results Laboratory Tests 12/20/24 05:05 Chemistry Test 12/20/24 05:05 Albumin 3.5 g/dL (3.2-4.8) Calcium Level 8.4 mg/dL (8.7-10.4) L Magnesium Level 2.1 mg/dL (1.6-2.6) Phosphorus Level 3.9 mg/dL (2.4-5.1) Total Protein 6.8 g/dL (5.7-8.2) LFT Test 12/20/24 05:05 Alanine Aminotransferase (ALT) 10 U/L (7-40) Alkaline Phosphatase 95 U/L (46-116) Aspartate Amino Transferase (AST) 28 U/L (13-40) Total Bilirubin 1.6 mg/dL (0.2-1.0) H Urinalysis Test 12/13/24 10:57 Urine Color [place] (Yellow) H Urine Clarity Turbid (Clear) H Urine pH 6.0 (5.0-9.0) Urine Specific [place] 1.032 (1.001-1.035) Urine Protein 1+ (Negative) H Urine Ketones 1+ (Negative) H Urine Blood 1+ /uL (Negative) H Urine Nitrite Negative (Negative) Urine Bilirubin 1+ (Negative) H Urine Urobilinogen 8 mg/dL (Negative) H Urine Leukocyte Esterase 3+ /uL (Negative) Urine RBC 14 /hpf (0 - 4) Urine Microscopic WBC 65 /HPF (0-5) H Urine Squamous Epithelial Cells Mod /hpf (<5) Urine Bacteria None seen /hpf (None Seen) Urine Mucus Few (None Seen) Urine Yeast (Budding) Occasional /hpf (None Urine Glucose Normal mg/dL (Normal) Urine Test Negative (Negative) Microbiology Microbiology Date/Time Source Procedure Growth Status 12/16/24 02:00 Urine - Midstream Clean Catch Urine Culture - Final Complete Labs and/or images reviewed: Labs reviewed by me Assessment/Plan Assessment/Plan Acute diverticulitis Questionable diverticular abscess Leukocytosis Continuing current management. Surgical consultation appreciate Radiology consult Continuing with IV antibiotic Zosyn/vancomycin We will let her bowel rest and continuing the patient on NPO Pain management : I will discontinuing morphine and start the patient on Dilaudid 1 mg IV q.4 PRN for pain Continuing with IV fluid Repeat CT abdomen and pelvis: Prominent inflammatory stranding in the lower abdomen and pelvis with ill-defined fluid, likely infectious or inflammatory in nature, extending adjacent to the small bowel loops, uterus, adnexa, and bladder. Differential considerations could include inflammatory bowel disease, pelvic inflammatory disease, or other infectious or inflammatory etiology. Correlate with clinical findings. Limited evaluation for abscess on noncontrast enhanced CT. Abscess not excluded. Nonspecific nondilated fluid-filled small bowel loops with inflammatory stranding adjacent to bowel loops in the lower abdomen and pelvis. Findings may be due to enteritis in the appropriate clinical setting. Appendix is normal in diameter. The appendix extends adjacent to the inflammatory changes in the lower abdomen and pelvis, although the inflammatory changes are not centered around the appendix to suggest acute appendicitis.. Mild circumferential thickening of the bladder wall. Correlate clinically to exclude cystitis. GI consult appreciate. continue clear liquid diet. CT abdomen and pelvis with oral and IV contrast show microperforation with free air. Dw Dr Esqueda, continue IV antibiotic. Will continue to monitor, no surgery. Continue pain control. This medical document was created using an electronic medical record system with [employer] direct computerized dictation system. Although this document has been carefully reviewed, there may still be some phonetic and typographical errors. These areas are purely typographical due to imperfections of the software programs, and do not reflect any compromise in the patient's medical care. Plan discussed with: Patient, Other (Dr Esqueda, surgeon.) My Orders Orders - LOAN MCCONNELL MD Procedure Category Date Status Time Ct Abd Pelvis W CT 12/19/24 Resulted Con-Oral & Iv 13:06 Npo (Nothing By DIET 12/20/24 Transmitted Mouth) Diet Breakfast Date of Service: Dec 20, 2024 Billing Provider: LOAN MCCONNELL MD Common Visit Codes: [id number] INP/OBS CARE(HIGH) LOAN MCCONNELL MD Dec 20, 2024 11:00
--- NOTE | 2024-12-20 13:11 | DVHPN2 ---
Progress Note - Surgical Date Seen: Dec 20, 2024 Post op day Post op day: 0 Subjective Patient reports: Feels better (Patient states the pain is minimal, she was able to tolerate soft diet yesterday. Three bowel movements, no blood.) Review of Systems: Deferred Objective Vital signs Vital Sign Date Time Temp Pulse Resp B/P (MAP) Pulse Ox O2 Delivery O2 Flow Rate FiO2 12/20/24 12:57 98.5 82 18 137/95 (109) 96 98.5 12/20/24 10:05 Room Air 0.0 12/20/24 10:05 21 Total Intake and Output 12/19/24 12/19/24 12/20/24 15:00 23:00 07:00 Intake Total 250 ml 0 ml Balance 250 ml 0 ml Medications Current Medications Medications Dose Ordered Sig/Naye Route Start Time Stop Time Status Last Admin Dose Admin Vancomycin HCl 0 ml @ 0 mls/hr UD IV 12/13/24 15:00 Pantoprazole Sodium 40 mg DAILY IV 12/14/24 10:00 12/20/24 08:57 40 MG Ondansetron HCl 4 mg Q4HP PRN IV 12/13/24 15:00 12/20/24 08:57 4 MG Morphine Sulfate 2 mg Q4HPRN PRN IV 12/13/24 15:00 UNV Morphine Sulfate 2 mg Q4HPRN PRN IV 12/13/24 15:00 Hydromorphone HCl 1 mg Q4HPRN PRN IV 12/14/24 12:00 12/20/24 08:58 1 MG Docusate Sodium 100 mg BID PO 12/14/24 22:00 12/19/24 21:48 100 MG Dextrose/Sodium Chloride 1,000 ml @ 50 mls/hr Q20H IV 12/15/24 22:30 12/20/24 02:46 50 MLS/HR Amino Acids 0 ml @ 0 mls/hr PER PHARMACY IV 12/16/24 11:00 Diagnostic Test (Pha) 1 strip Q6HR 12/16/24 18:00 12/20/24 05:45 1 STRIP Insulin Human Regular FOLLOW SLIDING SCALE Q6HR SC 12/16/24 18:00 12/17/24 12:34 4 UNITS Dextrose 50 ml UD IV 12/16/24 12:15 Amino Acids/ Electrolytes/ Dextrose 1,000 ml @ 41 mls/hr DAILY@2200 IV 12/16/24 22:00 12/19/24 21:50 41 MLS/HR Albuterol 2.5 mg Q6HPRN PRN NEB 12/16/24 21:00 12/17/24 19:26 2.5 MG Vancomycin HCl 250 ml @ 250 mls/hr Q12H IV 12/19/24 11:00 12/20/24 10:47 250 MLS/HR Piperacillin Sod/ Tazobactam Sod 100 ml @ 25 mls/hr Q8H IV 12/19/24 22:00 12/20/24 05:37 25 MLS/HR Laboratory Laboratory Tests 12/20/24 05:05 Test 12/20/24 05:05 Range/Units Serum Glucose 106 74-106 mg/dL Microbiology Date/Time Source Procedure Growth Status 12/16/24 02:00 Urine - Midstream Clean Catch Urine Culture - Final Complete Examination: GENERAL:Normal, ABDOMEN:Abnormal (Nondistended, soft, depressible, mild suprapubic tenderness, no rebound, no guarding) Labs and/or images reviewed: Labs reviewed by me (Leukocytosis continues to slowly downtrend 17 from 19.4), Image(s) reviewed by me (CT was reviewed and still shows a perisigmoid phlegmon with sigmoid micro perforation, no abscess) Problem List/Assessment/Plan Assessment and Plan is a 29-year-old female who presents with the acute diverticulitis, [place] [address] was reviewed and shows sigmoid colon diverticuli with surrounding inflammation and phlegmon formation. No free air noted on CT. Patient also presented with leukocytosis of 23. Patient will benefit from bowel rest and IV antibiotics. Interval: Patient had a repeat CT yesterday 12/19 and shows perisigmoid phlegmon with micro perforation, no abscess. Patient states her pain is about the same, not bad, had 3 bowel movements, no blood. She tolerated 2 days ago clear liquid diet, yesterday she tolerated soft diet. She is okay to continue with soft diet. Goal for discharge is to get her tolerating a regular diet without increasing abdominal pain or worsening condition. 1. Soft diet 2. Continue with IV antibiotics 3. Pain control 4. Nausea control 5. IV fluid hydration 6. Out of bed and ambulate 7. Colace b.i.d. (stool softener) 8. No GI laxatives or cathartics Plan discussed with Plan discussed with: Patient Visit Coding Surgery Date of Service if different f: Dec 20, 2024 Billing Provider: SLOANE MAN MD Surgery Visit Codes: [id number] INP/OBS CARE(HIGH) SLOANE MAN MD Dec 20, 2024 13:11
--- NOTE | 2024-12-20 22:21 | DVHPN2 ---
Progress Note - Dictate Date Seen: Dec 20, 2024 Medical Necessity Reason Pt with a Central, PICC or Fol: No Subjective Patient feeling much better, minimal abdominal pain, feeling hungry,, passing gas.) Patient is now afebrile; complaints of left arm pain from IV infiltration Leukocytosis improving slowly Repeat CT showed evidence of contained sigmoid perforation; no organizing abscess vital signs Vital Sign Date Time Temp Pulse Resp B/P (MAP) Pulse Ox O2 Delivery O2 Flow Rate FiO2 12/20/24 21:00 98.1 84 19 124/97 (106) 96 98.1 12/20/24 10:05 Room Air 0.0 12/20/24 10:05 21 Total Intake and Output 12/19/24 12/19/24 12/20/24 15:00 23:00 07:00 Intake Total 250 ml 0 ml Balance 250 ml 0 ml medications Current Medications Medications Dose Ordered Sig/Naye Route Start Time Stop Time Status Last Admin Dose Admin Vancomycin HCl 0 ml @ 0 mls/hr UD IV 12/13/24 15:00 Pantoprazole Sodium 40 mg DAILY IV 12/14/24 10:00 12/20/24 08:57 40 MG Ondansetron HCl 4 mg Q4HP PRN IV 12/13/24 15:00 12/20/24 17:22 4 MG Morphine Sulfate 2 mg Q4HPRN PRN IV 12/13/24 15:00 UNV Morphine Sulfate 2 mg Q4HPRN PRN IV 12/13/24 15:00 Hydromorphone HCl 1 mg Q4HPRN PRN IV 12/14/24 12:00 12/20/24 17:23 1 MG Docusate Sodium 100 mg BID PO 12/14/24 22:00 12/19/24 21:48 100 MG Dextrose/Sodium Chloride 1,000 ml @ 50 mls/hr Q20H IV 12/15/24 22:30 12/20/24 02:46 50 MLS/HR Amino Acids 0 ml @ 0 mls/hr PER PHARMACY IV 12/16/24 11:00 Diagnostic Test (Pha) 1 strip Q6HR 12/16/24 18:00 12/20/24 17:31 1 STRIP Insulin Human Regular FOLLOW SLIDING SCALE Q6HR SC 12/16/24 18:00 12/17/24 12:34 4 UNITS Dextrose 50 ml UD IV 12/16/24 12:15 Amino Acids/ Electrolytes/ Dextrose 1,000 ml @ 41 mls/hr DAILY@2200 IV 12/16/24 22:00 12/19/24 21:50 41 MLS/HR Albuterol 2.5 mg Q6HPRN PRN NEB 12/16/24 21:00 12/17/24 19:26 2.5 MG Vancomycin HCl 250 ml @ 250 mls/hr Q12H IV 12/19/24 11:00 12/20/24 10:47 250 MLS/HR Piperacillin Sod/ Tazobactam Sod 100 ml @ 25 mls/hr Q8H IV 12/19/24 22:00 12/20/24 14:56 25 MLS/HR objective General Appearance: Alert, Cooperative, mild distress HEENT: Atraumatic, PERRLA, EOMI, Mucous membr. moist/pink Neck: Supple Lungs: Clear to auscultation, Normal air movement Cardiovascular: Regular rate, Normal S1, Normal S2, No murmurs, Gallops, Rubs Abdomen: Normal bowel sounds, Soft, No tenderness Neuro: Cranial nerves 3-12 NL Psych/Mental Status: Mental status NL laboratory and microbiology Laboratory Tests 12/20/24 05:05 Test 12/20/24 05:05 Range/Units Serum Glucose 106 74-106 mg/dL Problems(with codes): (1) Abnormal finding on GI tract imaging (2) Leukocytosis (3) Acute diverticulitis (4) Acute UTI (urinary tract infection) Prognosis Plan Continue IV antibiotics Continue pain control Recommend clear liquid diet Surgical follow up appreciated Monitor labs Outpatient elective follow up with GI Services to discuss elective colonoscopy once acute diverticulitis has resolved Dietary Evaluation Review Comments: Advance to TPN per pharmacy providing 70 gram protein 1500 kcal. Expected Outcomes/Goals: meet pt's protein and energy needs. avoid wt loss Plan discussed with: Patient, Other (Nurse) CAESAR MARTIN MD Dec 20, 2024 22:20
[2024-12-21] VITALS (10 sets, daily range): BP systolic 117–134; BP diastolic 74–87; PULSE 73–90; RESP 16–20; TEMP 97.6–98.9; O2SAT 94–99
[2024-12-21 07:52] LABS: Albumin 3.4 g/dL (3.2-4.8); Alkaline Phosphatase 88 U/L (46-116); Anion Gap 11 (5-15); BUN/Creatinine Ratio 6.7 (10.0-20.0); Bilirubin, Total 1.2 mg/dL (0.2-1.0); Carbon Dioxide 25 mmol/L (20-31); Chloride 101 mmol/L (98-107); Glucose 84 mg/dL (74-106); Magnesium 2.2 mg/dL (1.6-2.6); Potassium 3.7 mmol/L (3.5-5.1); Sodium 137 mmol/L (136-145); Total Protein 6.8 g/dL (5.7-8.2)
[2024-12-21 07:53] LABS: Alanine Aminotransferase 9 U/L (7-40); Blood Urea Nitrogen 8 mg/dL (9-23); Calcium 8.2 mg/dL (8.7-10.4)
--- NOTE | 2024-12-21 12:23 | DVHPN2 ---
Progress Note - Surgical Date Seen: Dec 21, 2024 Post op day Post op day: 0 Subjective Patient reports: Feels better (Patient continues to feel better, tolerating soft diet, no nausea, no vomiting, had 2 bowel movements nonbloody) Review of Systems: Deferred Objective Vital signs Vital Sign Date Time Temp Pulse Resp B/P (MAP) Pulse Ox O2 Delivery O2 Flow Rate FiO2 12/21/24 12:18 74 18 117/74 12/21/24 10:34 97 Room Air* 0 21 12/21/24 09:00 98.6 98.6 Total Intake and Output 12/20/24 12/20/24 12/21/24 15:00 23:00 07:00 Intake Total 350 ml 1984 ml 625 ml Balance 350 ml 1984 ml 625 ml Medications Current Medications Medications Dose Ordered Sig/Naye Route Start Time Stop Time Status Last Admin Dose Admin Vancomycin HCl 0 ml @ 0 mls/hr UD IV 12/13/24 15:00 Pantoprazole Sodium 40 mg DAILY IV 12/14/24 10:00 12/21/24 08:39 40 MG Ondansetron HCl 4 mg Q4HP PRN IV 12/13/24 15:00 12/21/24 08:40 4 MG Morphine Sulfate 2 mg Q4HPRN PRN IV 12/13/24 15:00 UNV Morphine Sulfate 2 mg Q4HPRN PRN IV 12/13/24 15:00 Hydromorphone HCl 1 mg Q4HPRN PRN IV 12/14/24 12:00 12/21/24 08:41 1 MG Docusate Sodium 100 mg BID PO 12/14/24 22:00 12/21/24 08:39 100 MG Dextrose/Sodium Chloride 1,000 ml @ 50 mls/hr Q20H IV 12/15/24 22:30 12/20/24 02:46 50 MLS/HR Amino Acids 0 ml @ 0 mls/hr PER PHARMACY IV 12/16/24 11:00 Diagnostic Test (Pha) 1 strip Q6HR 12/16/24 18:00 12/21/24 11:37 1 STRIP Insulin Human Regular FOLLOW SLIDING SCALE Q6HR SC 12/16/24 18:00 12/17/24 12:34 4 UNITS Dextrose 50 ml UD IV 12/16/24 12:15 Amino Acids/ Electrolytes/ Dextrose 1,000 ml @ 41 mls/hr DAILY@2200 IV 12/16/24 22:00 12/20/24 22:42 41 MLS/HR Albuterol 2.5 mg Q6HPRN PRN NEB 12/16/24 21:00 12/17/24 19:26 2.5 MG Vancomycin HCl 250 ml @ 250 mls/hr Q12H IV 12/19/24 11:00 12/21/24 11:31 250 MLS/HR Piperacillin Sod/ Tazobactam Sod 100 ml @ 25 mls/hr Q8H IV 12/19/24 22:00 12/21/24 05:34 25 MLS/HR Laboratory Laboratory Tests 12/21/24 06:18 12/20/24 05:05 Test 12/21/24 06:18 Range/Units Serum Glucose 84 74-106 mg/dL Microbiology Date/Time Source Procedure Growth Status 12/16/24 02:00 Urine - Midstream Clean Catch Urine Culture - Final Complete Examination: GENERAL:Normal, ABDOMEN:Normal (Nondistended, soft, depressible, nontender) Labs and/or images reviewed: Labs reviewed by me (Within normal limits) Problem List/Assessment/Plan Assessment and Plan is a 29-year-old female who presents with the acute diverticulitis, [place] [address] was reviewed and shows sigmoid colon diverticuli with surrounding inflammation and phlegmon formation. No free air noted on CT. Patient also presented with leukocytosis of 23. Patient will benefit from bowel rest and IV antibiotics. Interval: Patient's condition continues to improve, tolerate a soft diet and had 2 additional bowel movements, nonbloody. Patient states she is not having any pain with bowel movements or with eating and her bowel movements are soft (she has does not have to push or strain). I will advance the patient to a regular diet and if she tolerates she can likely get discharged home tomorrow. 1. Regular diet 2. Continue with IV antibiotics 3. Pain control 4. Nausea control 5. Out of bed and ambulate 6. Colace b.i.d. (stool softener) 7. No GI laxatives or cathartics My Orders My Orders Orders - SLOANE MAN MD Procedure Category Date Status Time Regular Diet DIET 12/21/24 Verified Lunch Plan discussed with Plan discussed with: Patient Visit Coding Surgery Date of Service if different f: Dec 21, 2024 Billing Provider: SLOANE MAN MD Surgery Visit Codes: [id number] INP/OBS CARE(HIGH) SLOANE MAN MD Dec 21, 2024 12:23
--- NOTE | 2024-12-21 12:32 | DVHPN2 ---
Subjective The patient is seen and examined at bedside. Complain of severe abdominal pain. WBC trending down. Reviewed: Care Plan, H&P, Labs, Medications, Previous Orders, Radiology Changes from previous H/P or p: No Changes Objective Vitals Vital Signs Date Time Temp Pulse Resp B/P (MAP) Pulse Ox O2 Delivery O2 Flow Rate FiO2 12/21/24 12:18 74 18 117/74 12/21/24 10:34 97 Room Air* 0 21 12/21/24 09:00 98.6 98.6 Intake/Output Intake and Output 12/21/24 07:00 Intake Total 2959 ml Balance 2959 ml Intake Oral 2509 ml IV Total 450 ml # Voids 12 # Bowel Movements 2 General Appearance: Alert, Cooperative, moderate distress HEENT: Atraumatic, PERRLA, EOMI, Mucous membr. moist/pink Neck: Supple Lungs: Clear to auscultation, Normal air movement Cardiovascular: Regular rate, Normal S1, Normal S2, No murmurs, Gallops, Rubs Abdomen: Normal bowel sounds, Soft, No tenderness Neuro: Cranial nerves 3-12 NL Psych/Mental Status: Mental status NL Medications Current Medications Medications Dose Ordered Sig/Naye Route Start Time Stop Time Status Last Admin Dose Admin Vancomycin HCl 0 ml @ 0 mls/hr UD IV 12/13/24 15:00 Pantoprazole Sodium 40 mg DAILY IV 12/14/24 10:00 12/21/24 08:39 40 MG Ondansetron HCl 4 mg Q4HP PRN IV 12/13/24 15:00 12/21/24 08:40 4 MG Morphine Sulfate 2 mg Q4HPRN PRN IV 12/13/24 15:00 UNV Morphine Sulfate 2 mg Q4HPRN PRN IV 12/13/24 15:00 Hydromorphone HCl 1 mg Q4HPRN PRN IV 12/14/24 12:00 12/21/24 08:41 1 MG Docusate Sodium 100 mg BID PO 12/14/24 22:00 12/21/24 08:39 100 MG Dextrose/Sodium Chloride 1,000 ml @ 50 mls/hr Q20H IV 12/15/24 22:30 12/20/24 02:46 50 MLS/HR Amino Acids 0 ml @ 0 mls/hr PER PHARMACY IV 12/16/24 11:00 Diagnostic Test (Pha) 1 strip Q6HR 12/16/24 18:00 12/21/24 11:37 1 STRIP Insulin Human Regular FOLLOW SLIDING SCALE Q6HR SC 12/16/24 18:00 12/17/24 12:34 4 UNITS Dextrose 50 ml UD IV 12/16/24 12:15 Amino Acids/ Electrolytes/ Dextrose 1,000 ml @ 41 mls/hr DAILY@2200 IV 12/16/24 22:00 12/20/24 22:42 41 MLS/HR Albuterol 2.5 mg Q6HPRN PRN NEB 12/16/24 21:00 12/17/24 19:26 2.5 MG Vancomycin HCl 250 ml @ 250 mls/hr Q12H IV 12/19/24 11:00 12/21/24 11:31 250 MLS/HR Piperacillin Sod/ Tazobactam Sod 100 ml @ 25 mls/hr Q8H IV 12/19/24 22:00 12/21/24 05:34 25 MLS/HR Laboratory Results Laboratory Tests 12/20/24 05:05 12/21/24 06:18 Chemistry Test 12/21/24 06:18 Albumin 3.4 g/dL (3.2-4.8) Calcium Level 8.2 mg/dL (8.7-10.4) L Magnesium Level 2.2 mg/dL (1.6-2.6) Phosphorus Level 3.9 mg/dL (2.4-5.1) Total Protein 6.8 g/dL (5.7-8.2) LFT Test 12/21/24 06:18 Alanine Aminotransferase (ALT) 9 U/L (7-40) Alkaline Phosphatase 88 U/L (46-116) Aspartate Amino Transferase (AST) 26 U/L (13-40) Total Bilirubin 1.2 mg/dL (0.2-1.0) H Urinalysis Test 12/13/24 10:57 Urine Color [place] (Yellow) H Urine Clarity Turbid (Clear) H Urine pH 6.0 (5.0-9.0) Urine Specific [place] 1.032 (1.001-1.035) Urine Protein 1+ (Negative) H Urine Ketones 1+ (Negative) H Urine Blood 1+ /uL (Negative) H Urine Nitrite Negative (Negative) Urine Bilirubin 1+ (Negative) H Urine Urobilinogen 8 mg/dL (Negative) H Urine Leukocyte Esterase 3+ /uL (Negative) Urine RBC 14 /hpf (0 - 4) Urine Microscopic WBC 65 /HPF (0-5) H Urine Squamous Epithelial Cells Mod /hpf (<5) Urine Bacteria None seen /hpf (None Seen) Urine Mucus Few (None Seen) Urine Yeast (Budding) Occasional /hpf (None Urine Glucose Normal mg/dL (Normal) Urine Test Negative (Negative) Microbiology Microbiology Date/Time Source Procedure Growth Status 12/16/24 02:00 Urine - Midstream Clean Catch Urine Culture - Final Complete Assessment/Plan Assessment/Plan Acute diverticulitis Questionable diverticular abscess Leukocytosis Continuing current management. Surgical consultation appreciate Radiology consult Continuing with IV antibiotic Zosyn/vancomycin We will let her bowel rest and continuing the patient on NPO Pain management : I will discontinuing morphine and start the patient on Dilaudid 1 mg IV q.4 PRN for pain Continuing with IV fluid Repeat CT abdomen and pelvis: Prominent inflammatory stranding in the lower abdomen and pelvis with ill-defined fluid, likely infectious or inflammatory in nature, extending adjacent to the small bowel loops, uterus, adnexa, and bladder. Differential considerations could include inflammatory bowel disease, pelvic inflammatory disease, or other infectious or inflammatory etiology. Correlate with clinical findings. Limited evaluation for abscess on noncontrast enhanced CT. Abscess not excluded. Nonspecific nondilated fluid-filled small bowel loops with inflammatory stranding adjacent to bowel loops in the lower abdomen and pelvis. Findings may be due to enteritis in the appropriate clinical setting. Appendix is normal in diameter. The appendix extends adjacent to the inflammatory changes in the lower abdomen and pelvis, although the inflammatory changes are not centered around the appendix to suggest acute appendicitis.. Mild circumferential thickening of the bladder wall. Correlate clinically to exclude cystitis. GI consult appreciate. continue clear liquid diet. CT abdomen and pelvis with oral and IV contrast show microperforation with free air. Dw Dr Esqueda, continue IV antibiotic. Will continue to monitor, no surgery. Continue pain control. This medical document was created using an electronic medical record system with [employer] direct computerized dictation system. Although this document has been carefully reviewed, there may still be some phonetic and typographical errors. These areas are purely typographical due to imperfections of the software programs, and do not reflect any compromise in the patient's medical care. Plan discussed with: Patient Date of Service: Dec 21, 2024 Billing Provider: LOAN MCCONNELL MD Common Visit Codes: [id number] INP/OBS CARE(HIGH) LOAN MCCONNELL MD Dec 21, 2024 12:32
[2024-12-21] MEDS: VANCOMYCIN 750MG KIT 100 ML IV SCH (21:58)
--- NOTE | 2024-12-21 22:18 | DVHPN2 ---
Progress Note - Dictate Date Seen: Dec 21, 2024 Medical Necessity Reason Pt with a Central, PICC or Fol: No Subjective Patient feeling much better, minimal abdominal pain, feeling hungry,, passing gas.) Patient is now afebrile; arm pain and abdominal pain have improved Leukocytosis improving slowly Repeat CT showed evidence of contained sigmoid perforation; no organizing abscess vital signs Vital Sign Date Time Temp Pulse Resp B/P (MAP) Pulse Ox O2 Delivery O2 Flow Rate FiO2 12/21/24 20:32 97 Room Air 0.0 12/21/24 20:32 21 12/21/24 20:00 20 12/21/24 18:34 89 129/87 12/21/24 16:59 97.6 97.6 Total Intake and Output 12/20/24 12/20/24 12/21/24 15:00 23:00 07:00 Intake Total 350 ml 1984 ml 625 ml Balance 350 ml 1984 ml 625 ml medications Current Medications Medications Dose Ordered Sig/Naye Route Start Time Stop Time Status Last Admin Dose Admin Vancomycin HCl 0 ml @ 0 mls/hr UD IV 12/13/24 15:00 Pantoprazole Sodium 40 mg DAILY IV 12/14/24 10:00 12/21/24 08:39 40 MG Ondansetron HCl 4 mg Q4HP PRN IV 12/13/24 15:00 12/21/24 18:33 4 MG Morphine Sulfate 2 mg Q4HPRN PRN IV 12/13/24 15:00 UNV Morphine Sulfate 2 mg Q4HPRN PRN IV 12/13/24 15:00 Hydromorphone HCl 1 mg Q4HPRN PRN IV 12/14/24 12:00 12/21/24 18:34 1 MG Docusate Sodium 100 mg BID PO 12/14/24 22:00 12/21/24 21:58 100 MG Dextrose/Sodium Chloride 1,000 ml @ 50 mls/hr Q20H IV 12/15/24 22:30 12/20/24 02:46 50 MLS/HR Albuterol 2.5 mg Q6HPRN PRN NEB 12/16/24 21:00 12/17/24 19:26 2.5 MG Piperacillin Sod/ Tazobactam Sod 100 ml @ 25 mls/hr Q8H IV 12/19/24 22:00 12/21/24 14:01 25 MLS/HR Vancomycin HCl 100 ml @ 100 mls/hr Q12H IV 12/21/24 23:00 12/21/24 21:58 100 MLS/HR objective General Appearance: Alert, Cooperative, mild distress HEENT: Atraumatic, PERRLA, EOMI, Mucous membr. moist/pink Neck: Supple Lungs: Clear to auscultation, Normal air movement Cardiovascular: Regular rate, Normal S1, Normal S2, No murmurs, Gallops, Rubs Abdomen: Normal bowel sounds, Soft, No tenderness Neuro: Cranial nerves 3-12 NL Psych/Mental Status: Mental status NL laboratory and microbiology Laboratory Tests 12/21/24 06:18 12/20/24 05:05 Test 12/21/24 06:18 Range/Units Serum Glucose 84 74-106 mg/dL Problems(with codes): (1) Abnormal finding on GI tract imaging (2) Leukocytosis (3) Acute diverticulitis (4) Acute UTI (urinary tract infection) Prognosis Plan I have encouraged the patient to stay more on a full liquid to a pureed diet for the next week She will continue IV antibiotics and upon discharge he will be given oral antibiotics Continue stool softeners; probiotics Outpatient follow up with me in 4-6 weeks after discharge to reassess diverticulitis Dietary Evaluation Review Comments: Advance to TPN per pharmacy providing 70 gram protein 1500 kcal. Expected Outcomes/Goals: meet pt's protein and energy needs. avoid wt loss Plan discussed with: Patient, Other (Dr Esqueda) CAESAR MARTIN MD Dec 21, 2024 22:18
[2024-12-22] VITALS (9 sets, daily range): BP systolic 101–126; BP diastolic 60–87; PULSE 63–80; RESP 15–19; TEMP 98.3–98.7; O2SAT 96–98
[2024-12-22 06:17] LABS: Chloride 101.0 mmol/L (98-107); Potassium 4.0 mmol/L (3.5-5.1); Sodium 138.0 mmol/L (136-145)
[2024-12-22 06:18] LABS: Anion Gap 9.0 (5-15); Carbon Dioxide 28.0 mmol/L (20-31)
[2024-12-22 06:19] LABS: Calcium 8.2 mg/dL (8.7-10.4)
[2024-12-22 06:20] LABS: Anion Gap 10 (5-15); Carbon Dioxide 28 mmol/L (20-31); Chloride 101 mmol/L (98-107); Potassium 4.3 mmol/L (3.5-5.1); Sodium 139 mmol/L (136-145)
[2024-12-22 06:23] LABS: Glucose 86.0 mg/dL (74-106)
[2024-12-22 06:24] LABS: BUN/Creatinine Ratio 6.1 (10.0-20.0); Blood Urea Nitrogen 8.0 mg/dL (9-23); Calcium 8.4 mg/dL (8.7-10.4)
[2024-12-22 06:25] LABS: Albumin 3.5 g/dL (3.2-4.8)
[2024-12-22 06:26] LABS: BUN/Creatinine Ratio 7.8 (10.0-20.0); Blood Urea Nitrogen 10 mg/dL (9-23); Glucose 86 mg/dL (74-106)
[2024-12-22 06:28] LABS: Hematocrit 34.6 % (36.0-46.0); Hemoglobin 11.5 g/dL (12.2-16.2); Mean Corpuscular Hemoglobin 26.8 pg (28.0-32.0); Mean Corpuscular Volume 81.0 fL (80.0-100.0); Nucleated Red Blood Cells % 0.0 %
--- NOTE | 2024-12-22 10:09 | DVHPN2 ---
Progress Note - Surgical Date Seen: Dec 22, 2024 Post op day Post op day: 0 Subjective Patient reports: Feels better (No abdominal pain complaints, tolerating diet, had 3 bowel movements.) Review of Systems: Deferred Objective Vital signs Vital Sign Date Time Temp Pulse Resp B/P (MAP) Pulse Ox O2 Delivery O2 Flow Rate FiO2 12/22/24 09:42 80 18 101/74 12/22/24 08:00 97 Room Air* 0 21 12/22/24 05:00 98.3 98.3 Total Intake and Output 12/21/24 12/21/24 12/22/24 14:59 22:59 06:59 Intake Total 350 ml 600 ml 600 ml Balance 350 ml 600 ml 600 ml Medications Current Medications Medications Dose Ordered Sig/Naye Route Start Time Stop Time Status Last Admin Dose Admin Vancomycin HCl 0 ml @ 0 mls/hr UD IV 12/13/24 15:00 Pantoprazole Sodium 40 mg DAILY IV 12/14/24 10:00 12/22/24 08:15 40 MG Ondansetron HCl 4 mg Q4HP PRN IV 12/13/24 15:00 12/22/24 06:46 4 MG Morphine Sulfate 2 mg Q4HPRN PRN IV 12/13/24 15:00 UNV Morphine Sulfate 2 mg Q4HPRN PRN IV 12/13/24 15:00 Hydromorphone HCl 1 mg Q4HPRN PRN IV 12/14/24 12:00 12/22/24 06:46 1 MG Docusate Sodium 100 mg BID PO 12/14/24 22:00 12/22/24 08:14 100 MG Dextrose/Sodium Chloride 1,000 ml @ 50 mls/hr Q20H IV 12/15/24 22:30 12/20/24 02:46 50 MLS/HR Albuterol 2.5 mg Q6HPRN PRN NEB 12/16/24 21:00 12/17/24 19:26 2.5 MG Piperacillin Sod/ Tazobactam Sod 100 ml @ 25 mls/hr Q8H IV 12/19/24 22:00 12/22/24 05:08 25 MLS/HR Vancomycin HCl 100 ml @ 100 mls/hr Q12H IV 12/21/24 23:00 12/21/24 21:58 100 MLS/HR Laboratory Laboratory Tests 12/22/24 05:38 Test 12/22/24 05:38 Range/Units Serum Glucose 86 74-106 mg/dL Microbiology Date/Time Source Procedure Growth Status 12/16/24 02:00 Urine - Midstream Clean Catch Urine Culture - Final Complete Examination: GENERAL:Normal, ABDOMEN:Normal (Nondistended, soft, depressible, nontender) Labs and/or images reviewed: Labs reviewed by me (No leukocytosis 9.5 from 16.7) Problem List/Assessment/Plan Assessment and Plan is a 29-year-old female who presents with the acute diverticulitis, [place] [address] was reviewed and shows sigmoid colon diverticuli with surrounding inflammation and phlegmon formation. No free air noted on CT. Patient also presented with leukocytosis of 23. Patient will benefit from bowel rest and IV antibiotics. Interval: Patient doing well, tolerating diet for several days now, having multiple nonbloody bowel movements and soft. Patient is cleared for discharge per surgical standpoint. 1. Diet as tolerated 2. Recommend upon discharge: Augmentin 875, 125 mg 1 tab p.o. b.i.d. for a total of 10-14 days minus the in hospital days. 3. Recommend upon discharge: Colace 100 mg 1 tab p.o. b.i.d. 4. No GI laxatives or cathartics 5. Patient will need colonoscopy in 2-3 months after symptom resolution 6. Follow with Dr. Esqueda at surgery Clinic as needed Plan discussed with Plan discussed with: Patient Visit Coding Surgery Date of Service if different f: Dec 22, 2024 Billing Provider: SLOANE MAN MD Surgery Visit Codes: [id number] INP/OBS CARE(HIGH) SLOANE MAN MD Dec 22, 2024 10:09
[2024-12-22] MEDS ORDERED: ZOFR4T PO (14:56)
[2024-12-22] MEDS ORDERED: HYDR-4902 PO (14:56)
[2024-12-22] MEDS ORDERED: AUG875T PO (14:56)
--- NOTE | 2024-12-22 14:59 | DVHDS2 ---
Discharge Summary Date of Admission Dec 13, 2024 at 14:49 Date of Discharge: Dec 22, 2024 Admitting Diagnosis Acute diverticulitis Questionable diverticular abscess Leukocytosis Morbid obesity Labs/Diagnostic Data: Laboratory Results Test 12/22/24 05:38 12/21/24 11:36 12/21/24 06:18 12/20/24 21:58 White Blood Count 9.5 10^3/uL (4.4-10.8) Red Blood Count 4.28 10^6/uL (4.0-5.20) Hemoglobin 11.5 g/dL (12.2-16.2) Hematocrit 34.6 % (36.0-46.0) Mean Corpuscular Volume 81.0 fL (80.0-100.0) Mean Corpuscular Hemoglobin 26.8 pg (28.0-32.0) Mean Corpuscular Hemoglobin Concent 33.1 g/dL (32.0-36.0) Red Cell Distribution Width 15.1 % (11.8-14.3) Platelet Count 417 10^3/uL (140-450) Mean Platelet Volume 8.7 fL (6.9-10.8) Neutrophils (%) (Auto) 67.7 % (37.0-80.0) Lymphocytes (%) (Auto) 13.8 % (10.0-50.0) Monocytes (%) (Auto) 12.2 % (0.0-12.0) Eosinophils (%) (Auto) 5.8 % (0.0-7.0) Basophils (%) (Auto) 0.5 % (0.0-2.0) Neutrophils # (Auto) 6.5 10 ^3/uL (1.6-8.6) Lymphocytes # (Auto) 1.3 10 ^3/uL (0.4-5.4) Monocytes # (Auto) 1.2 10 ^3/uL (0-1.3) Eosinophils # (Auto) 0.5 10 ^3/uL (0-0.8) Basophils # (Auto) 0 10 ^3/uL (0-0.2) Nucleated Red Blood Cells 0.0 % Sodium Level 139 mmol/L (136-145) Potassium Level 4.3 mmol/L (3.5-5.1) Chloride Level 101 mmol/L (98-107) Carbon Dioxide Level 28 mmol/L (20-31) Anion Gap 10 (5-15) Blood Urea Nitrogen 10 mg/dL (9-23) Creatinine 1.29 mg/dL (0.550-1.02) Glomerular Filtration Rate Calc 58 mL/min (>90) Estimated GFR () 61 mL/min Estimated GFR (Non- 51 mL/min BUN/Creatinine Ratio 7.8 (10.0-20.0) Serum Glucose 86 mg/dL (74-106) Calcium Level 8.4 mg/dL (8.7-10.4) Phosphorus Level 3.8 mg/dL (2.4-5.1) Albumin 3.5 g/dL (3.2-4.8) POC Glucose 107 mg/dl (70-106) Magnesium Level 2.2 mg/dL (1.6-2.6) Total Bilirubin 1.2 mg/dL (0.2-1.0) Aspartate Amino Transferase (AST) 26 U/L (13-40) Alanine Aminotransferase (ALT) 9 U/L (7-40) Alkaline Phosphatase 88 U/L (46-116) Total Protein 6.8 g/dL (5.7-8.2) Vancomycin Level Trough 14.6 ug/mL (5-10) Test 12/19/24 07:34 12/16/24 01:20 12/15/24 06:16 12/13/24 18:00 Random Vancomycin Level 8.6 ug/mL (5-10) Differential Total Cells Counted 100.0 (100) Neutrophils % (Manual) 88 (37.0-80.0) Band Neutrophils % (Manual) 2 Lymphocytes % (Manual) 4 (10.0-50.0) Monocytes % (Manual) 6 (0-12) Eosinophils % (Manual) 0 (0-7) Basophils % (Manual) 0 (0.0-2.0) Metamyelocytes % (manual) 0 Myelocytes % (Manual) 0 Promyelocytes % (Manual) 0 Blast Cells % (Manual) 0 Reactive Lymphocytes 0 Platelet Estimate Increased Anisocytosis (manual) Slight Triglycerides Level 78 mg/dL (< 150) Atypical p-ANCA <1:20 titer (Neg:<1:20) Saccharomyces cerevisiae IgG Ab <20.0 Units (0.0-24.9) Saccharomyces cerevisiae IgA Ab <20.0 Units (0.0-24.9) Lactic Acid Level 0.7 mmol/L (0.4-2.0) Test 12/13/24 11:09 12/13/24 10:57 Prothrombin Time 12.4 sec (9.3-11.8) Prothrombin Time INR 1.19 (0.9-1.15) Activated Partial Thromboplast Time 37.0 SEC (24.5-34.5) Urine Color [place] (Yellow) Urine Clarity Turbid (Clear) Urine pH 6.0 (5.0-9.0) Urine Specific [place] 1.032 (1.001-1.035) Urine Protein 1+ (Negative) Urine Ketones 1+ (Negative) Urine Blood 1+ /uL (Negative) Urine Nitrite Negative (Negative) Urine Bilirubin 1+ (Negative) Urine Urobilinogen 8 mg/dL (Negative) Urine Leukocyte Esterase 3+ /uL (Negative) Urine RBC 14 /hpf (0 - 4) Urine Microscopic WBC 65 /HPF (0-5) Urine Squamous Epithelial Cells Mod /hpf (<5) Urine Bacteria None seen /hpf (None Seen) Urine Mucus Few (None Seen) Urine Yeast (Budding) Occasional /hpf (None Urine Glucose Normal mg/dL (Normal) Urine Test Negative (Negative) Other Laboratory Tests 12/22/24 05:38 Brief Hx & Hospital Course: This is a 29 years old female come to emergency department because severe abdominal pain for one week. Her abdominal pain is associated with nausea and chill. No vomiting. Denied any hematuria, dysuria, or polyuria. The patient was admitted. Workup was done. CT abdomen and pelvis showed: Hepatomegaly and hepatic steatosis. Fluid density mass-like area in the lower abdominal mesenteric fat abuts the urinary bladder dome, loops of small bowel, and sigmoid colon. This likely represents inflammatory phlegmon versus developing diverticular abscess, less likely neoplasm. Recommend surgical consultation if not already obtained. Low volume free fluid in the pelvis with increased density suggestive of blood products.No evidence of bowel obstruction, acute appendicitis, or other acute process in the abdomen or pelvis. The patient was put on IV antibiotic with vancomycin pharmacy to dose and Zosyn. Surgeon see the patient and recommend continuing to monitor. The patient had a repeat CT abdomen pelvis showed Inflamed section of sigmoid colon. Phlegmon anterior to the inflamed sigmoid colon contains small foci of air consistent with locally contained perforation. No definite organized abscess is identified. Small to moderate free fluid in the pelvis. Normal appendix.Hepatomegaly. Perforated viscus. Surgeon still recommend no surgery and monitor her. Her white cell count come down tremendously today. The patient able to tolerate diet. The patient ambulate. So I am going to discharge the patient home. Advised the patient to follow up with primary care physician 1-2 weeks. Activity as tolerated. Diet per home diet. Physical exam: HEENT: Normocephalic atraumatic pupils equal react to light and accommodation. Extraocular muscles intact, conjunctiva pink, oropharynx moist, no thrush, no exudate. Lymphatic: No lymphadenopathy Cardiovascular exam: S1, S2 was heard. No murmurs, rubs, gallops Lung: Clear on auscultation bilaterally, no wheeze, rale, rhonchi. GI: Abdominal soft, nondistended, nontenderness, positive bowel sounds. Extremity: No crepitus, cyanosis, edema. Pedal pulses present bilateral. Full range of motion. Skin: Normal turgor, no rash. Psych: Alert, oriented x3. Neurology: No focal deficits, cranial nerve II to XII grossly intact. This medical document was created using an electronic medical record system with [employer] direct computerized dictation system. Although this document has been carefully reviewed, there may still be some phonetic and typographical errors. These areas are purely typographical due to imperfections of the software programs, and do not reflect any compromise in the patient's medical care. Condition at Discharge: Stable Final Diagnosis/Problems List Diverticulitis with microperforation Questionable diverticular abscess Leukocytosis Morbid obesity Discharge Disposition: Home Discharge Instruct/Medications Diet: Regular Activity: No Restrictions, As Tolerated Follow Up/Referral: pcp 1-2 weeks Medications: See med list Scheduled Amoxicillin & Pot Clavulanate (Augmentin Tablet), 875 MG PO BID Scheduled PRN Hydrocodone-Acetaminophen (Hydrocodone Bitartrate/AC 5-325 mg), 1 TAB PO Q6HPRN PRN Ondansetron Odt 4MG Tab (Zofran Po), 4 MG PO Q8HPRN PRN Miscellaneous Medications Albuterol Sulfate (Ventolin Mdi), 90 MCG IN, (Reported) Discharge Statement: "Patient was advised to return to the ER or call 911 if any headaches, dizziness, shortness of breath, chest pain, abdominal pain, bleeding, fevers, or worsening of medical condition. Patient was counseled about treatment plan, medications, possible side effects, patientverbalized understanding. All questions were answered to the best of my ability. This discharge took greater then 30 minutes in planning, reviewing documentation, counseling the patient, and discussing with other team members." ASSESSMENT ASSESSMENT Assessment Diverticulitis with microperforation Date of Service: Dec 22, 2024 Billing Provider: LOAN MCCONNELL MD Common Visit Codes: [id number] DISCH DAY >30min LOAN MCCNONELL MD Dec 22, 2024 14:59
== END 2024-12-22 17:28 | disposition home or self-care (01) | DRG 720 ==
LOC: ER 10:27 → OVERFLOW 14:49 → UNDODISIN 20:26 → WEST WING 12-14 02:50
PROVIDERS: ADMIT Internal Medicine; ATTEND Internal Medicine
DX: A41.9 Sepsis, unspecified organism (principal); K57.20 Diverticulitis of large intestine with perforation and abscess without bleeding; E73.9 Lactose intolerance, unspecified; N39.0 Urinary tract infection, site not specified; J45.909 Unspecified asthma, uncomplicated; K76.0 Fatty (change of) liver, not elsewhere classified; Z83.3 Family history of diabetes mellitus
CPT/HCPCS: 36415; 74176; 74177; 76830; 76856; 80048; 80053; 80069; 80202; 81001; 81025; 82565; 82962; 83605; 83735; 84100; 84478; 85007; 85025; 85027; 85610; 85730; 86256; 86671; 86850; 86900; 86901; 87086; 94640; G0378; J1815; J1885; J1956; J2405; J2470; J2543; J3480; J3490